=== PATIENT | male | born 1955 | race Caucasian/White ===

== ENCOUNTER 2018-11-04 14:14 | Emergency (ER) | payer OTHER ==
[~2018-11-04] VITALS: Ht 182.9 cm; Wt 102.1 kg
[~2018-11-04 14:14] MED LIST: GUAI200T5 PO; LISI20TA61 PO; METO25TA20 PO; OMEP20CA11 PO
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
[2018-11-04] MEDS ORDERED: HYDROCODONE/APAP 5/325MG 1 EACH TABLET PO ONE (15:00)
[2018-11-04] MEDS ORDERED: ASPIRIN 81 MG TAB.CHEW PO ONE (15:00)
[2018-11-04] MEDS ORDERED: HYDROCODONE/APAP 5/325MG 1 EACH TABLET ONE (15:04)
[2018-11-04] MEDS ORDERED: ASPIRIN 81 MG TAB.CHEW ONE (15:05)
--- NOTE | 2018-11-04 15:12 | NUR ---
BITA WHITFIELD AT BEDSIDE FOR EKG LAB AT BEDSIDE FOR BLOOD DRAW
[2018-11-04 15:19] LABS: BASOPHILS # (AUTO) 0.1 /CMM (0.0-0.2); BASOPHILS % (AUTO) 0.3 % (0.0-2.0); EOSINOPHILS % (AUTO) 1.2 % (0.0-6.0); HEMATOCRIT 43 % (39-51); LYMPHOCYTES # (AUTO) 12.1 /CMM (0.8-4.8); LYMPHOCYTES % (AUTO) 61.4 % (20.0-44.0); MEAN CORPUSCULAR HGB CONC 33 g/dl (31.0-36.0); MEAN CORPUSCULAR VOLUME 90 fL (80-96); MONOCYTES % (AUTO) 4.9 % (2.0-12.0); NEUTROPHILS # (AUTO) 6.3 /CMM (1.8-8.9); NEUTROPHILS % (AUTO) 32.2 % (43.0-81.0); PLATELET COUNT (AUTO) 255 /CMM (150-450); RED BLOOD CELL COUNT(AUTO) 4.75 MIL/uL (4.5-6.0); WHITE BLOOD COUNT (AUTO) 19.7 K/uL (4.3-11.0)
[2018-11-04 15:26] LABS: CALCIUM, SERUM 8.9 mg/dL (8.5-10.1); CARBON DIOXIDE 28 mmol/L (21-32); CHLORIDE 104 mmol/L (98-107); GLUCOSE 84 mg/dL (74-106); POTASSIUM 4.1 mmol/L (3.5-5.1); SODIUM SERUM 140 mmol/L (136-145); UREA NITROGEN, BLOOD 12 mg/dL (7-18)
[2018-11-04] MEDS ORDERED: CARV6.252 PO (15:26)
[2018-11-04] MEDS ORDERED: AMLO5TAB9 PO (15:26)
--- NOTE | 2018-11-04 15:40 | NUR ---
PT TAKEN TO RADIOLOGY VIA JORGE
--- NOTE | 2018-11-04 17:16 | NUR ---
PT STATES FEELING BETTER. PAIN IS MINIMAL. NO OTHER COMPLAINTS AT THIS TIME.
[2018-11-04 18:00] VITALS: BP 162/88
== END 2018-11-04 18:02 | disposition home or self-care (01) ==
LOC: ER 14:14
DX: R07.89 Other chest pain (principal); D72.829 Elevated white blood cell count, unspecified; M54.5 Low back pain; I10 Essential (primary) hypertension; E66.9 Obesity, unspecified; G89.29 Other chronic pain; Z90.89 Acquired absence of other organs; Z68.30 Body mass index [BMI] 30.0-30.9, adult; Z98.890 Other specified postprocedural states; V49.49XA Driver injured in collision with other motor vehicles in traffic accident, initial encounter; Y93.89 Activity, other specified; Y92.488 Other paved roadways as the place of occurrence of the external cause; Y99.8 Other external cause status
CPT/HCPCS: 36415; 71045-TC; 72110-TC; 80048-TC; 84484-TC; 85025-TC; 85378-TC

== ENCOUNTER 2021-12-13 19:35 | Inpatient (IN) | payer MEDICAID, OTHER ==
[~2021-12-13] VITALS: Ht 182.9 cm; Wt 105.9 kg
[~2021-12-13 19:35] MED LIST changes: +AMLO-212 PO; +CARV6.252 PO; -GUAI200T5 PO; -LISI20TA61 PO; -METO25TA20 PO; -OMEP20CA11 PO
--- NOTE | 2021-12-13 19:48 | NUR ---
BIBRA81. WEAKNESS X 2 DAYS. NOTED AFIB RVR. DENIES CP. PATIENT ALERT AND ORIENTED X4. AMBULATORY WITH NON LABORED BREATHING. ON A MONITOR AND POX IN BED 08 AWAITING MD ROBB.
--- NOTE | 2021-12-13 19:51 | NUR ---
BLOOD COLLECTED AND SENT TO LAB
--- NOTE | 2021-12-13 19:56 | NUR ---
EMT AT BEDSIDE FOR EKG
[2021-12-13 20:10] LABS: BASOPHILS # (AUTO) 0.1 K/uL (0.0-0.2); BASOPHILS % (AUTO) 0.2 % (0.0-2.0); EOSINOPHILS % (AUTO) 0.6 % (0.0-6.0); HEMATOCRIT 39 % (39-51); HEMOGLOBIN 12.7 g/dL (13.5-17.5); LYMPHOCYTES # (AUTO) 27.7 K/uL (0.8-4.8); MEAN CORPUSCULAR HGB CONC 33 g/dl (31.0-36.0); MEAN CORPUSCULAR VOLUME 90 fL (80-96); MONOCYTES # (AUTO) 0.8 K/uL (0.1-1.30); MONOCYTES % (AUTO) 2.2 % (2.0-12.0); NEUTROPHILS # (AUTO) 7.2 K/uL (1.8-8.9); PLATELET COUNT (AUTO) 186 K/uL (150-450); RED BLOOD CELL COUNT(AUTO) 4.33 MIL/uL (4.5-6.0)
[2021-12-13 20:24] LABS: CALCIUM, SERUM 9.1 mg/dL (8.5-10.1); CARBON DIOXIDE 25 mmol/L (21-32); CHLORIDE 102 mmol/L (98-107); CREATININE 1.1 mg/dL (0.6-1.3); GLUCOSE 123 mg/dL (74-106); POTASSIUM 4.6 mmol/L (3.5-5.1); SODIUM SERUM 135 mmol/L (136-145); UREA NITROGEN, BLOOD 12 mg/dL (7-18)
[2021-12-13] MEDS ORDERED: METOPROLOL TARTRATE INJ 5 MG/5 ML AMPUL IVP SCH (20:30)
[2021-12-13] MEDS ORDERED: METOPROLOL TARTRATE INJ 5 MG/5 ML AMPUL ONE ×3 (20:32→21:26)
--- NOTE | 2021-12-13 20:43 | NUR ---
COVID SWAB DONE AND SENT TO LAB
[2021-12-13] MEDS ORDERED: METOPROLOL TARTRATE INJ 5 MG/5 ML AMPUL IV ONE ×2 (21:30)
[2021-12-13] MEDS ORDERED: DILTIAZEM HCL 25 MG IV ONE ×2 (21:45→22:33)
[2021-12-13] MEDS ORDERED: IV NS 0.9% 500 ML IV ONE (22:00)
[2021-12-13] MEDS ORDERED: DILTIAZEM HCL IV 125 MG in IV NS 0.9% 100 ML IV PRN (22:00)
[2021-12-13] MEDS ORDERED: IV NS 0.9% 1,000 ML IV ONE (22:00)
[2021-12-13] MEDS ORDERED: DILTIAZEM HCL 25 MG IV IV ONE (22:00)
[2021-12-13] MEDS ORDERED: APIXABAN 5 MG TABLET ONE (22:03)
[2021-12-13] MEDS: APIXABAN 5 MG TABLET PO SCH (22:05)
[2021-12-13 22:06] LABS: WHITE BLOOD COUNT (AUTO) 35.9 K/uL (4.3-11.0)
--- NOTE | 2021-12-13 22:06 | NUR ---
WBC 35.9
[2021-12-13 22:20] LABS: BAND % (MANUAL) 2 % (0.0-5.0); LYMPHOCYTES % (MANUAL) 74 % (16-48); MONOCYTES % (MANUAL) 1 % (0-11.0); NEUTROPHILS % (MANUAL) 23 (42-76)
[2021-12-13] MEDS ORDERED: DILTIAZEM HCL 50 MG IV ONE (22:33)
[2021-12-13] MEDS ORDERED: APIXABAN 5 MG TABLET PO SCH (23:15)
[2021-12-13] MEDS ORDERED: MAGNESIUM HYDROXIDE 30 ML UDC PO PRN (23:30)
[2021-12-13] MEDS ORDERED: ACETAMINOPHEN 325 MG TABLET PO PRN (23:30)
[2021-12-13] MEDS ORDERED: Z GUARD REMEDY 4 OZ OINT TP PRN (23:30)
[2021-12-13] MEDS ORDERED: AZITHROMYCIN 500 MG in IV D5W 250 ML IV SCH (23:30)
[2021-12-13] MEDS ORDERED: ONDANSETRON HCL/PF 4 MG/2 ML VIAL IVP PRN (23:30)
[2021-12-13] MEDS ORDERED: CEFTRIAXONE 1 G in IV D5W 50 ML IV SCH (23:30)
[2021-12-13] MEDS ORDERED: HYDROCODONE/APAP 5/325MG TABLET PO PRN (23:30)
[2021-12-13] MEDS ORDERED: CEFTRIAXONE 1GM BAG (ER ONLY) 50 ML IV ONE (23:50)
[2021-12-13] MEDS ORDERED: AZITHROMYCIN 500 MG VIAL ONE (23:51)
[2021-12-14] VITALS (7 sets, daily range): BP systolic 119–142; BP diastolic 70–97
--- NOTE | 2021-12-14 00:47 | NUR ---
report given to olga giron
[2021-12-14] MEDS ORDERED: methylPREDNISolone SOD SUCC 125 MG/2ML VIAL IV ONE (01:30)
[2021-12-14] MEDS ORDERED: methylPREDNISolone SOD SUCC 125 MG/2ML VIAL ONE (01:32)
[2021-12-14] MEDS ORDERED: LEVALBUTEROL HCL NEB 1.25 MG/0.5 ML VIAL.NEB ONE (01:44)
[2021-12-14] MEDS ORDERED: IPRATROPIUM NEB FS 0.5 MG/2.5 ML AMPUL.NEB ONE (01:45)
[2021-12-14] MEDS: IPRATROPIUM NEB FS 0.5 MG/2.5 ML AMPUL.NEB NEB PRN (01:53)
[2021-12-14] MEDS: LEVALBUTEROL HCL NEB 1.25 MG/0.5 ML VIAL.NEB NEB PRN (01:53)
--- NOTE | 2021-12-14 02:25 | NUR ---
transferred patient to [facility]
--- NOTE | 2021-12-14 03:14 | NUR ---
PLATE PREPARERVOICE PATHOLOGIST NOTE PATIENT BROUGHT IN UNIT AT AROUND 0217 AM ACCOMPANIED BY 2 ER STAFF. PATIENT NOTED TO HAVE SOB IN EXERTION, AND NOTED TO BE IN SIMPLE MASK-- PATIENT A MOUTH BREATHER. PATIENT DENIES CHEST PAIN AT THIS TIME. NOTED TO BE COUGHING UPON ARRIVAL. PER PATIENT SYMPTOMS ARE ALL NEW TO HIM. PATIENT IN TELE MONITOR READING A-FIB CONTROLLED AT THIS TIME. NOTED TO HAVE DISTENDED ABDOMEN, FIRM, NON-TENDED TO PALPATE BUT PER PATIENT HE IS REGULAR WITH HIS BM. PER PATIENT HE LIVES ALONE AND WOULD NEED TRANSPORTATION GOING HOME SINCE HIS SON LIVES IN [place]. PATIENT NOT COVID VACCINATED AND PER HIM IT'S BY CHOICE AND REFUSES VACCINE. PATIENT UP TO DATE WITH HIS FLU VACCINE BUT UNABLE TO RECALL DATE. PATIENT ORIENTED IN THE UNIT AND THE USE OF CALL LIGHT. BELONGINGS SIGNED FOR. NEW ID BAND ON PATIENT. IV ACCESS ON LEFT HAND #18G INTACT. SKIN INTACT. SAFETY IN PLACE. WILL FOLLOW THROUGH DOCTOR'S ORDERS AND CARE PLAN. ADMISSION V/S FOLLOWS: 139/84, HR-120, T-97.8, SAT-98% IN 4LPM. RR- 36 BPM. PATIENT WISHES TO BE FULL CODE AT THIS TIME.
--- NOTE | 2021-12-14 04:44 | NUR ---
patient ambulated to the restroom, denies any lightheadedness nor syncope. still sob but tolerated without oxygen. per patient he feels better than he did earlier when ambulating.
--- NOTE | 2021-12-14 06:49 | NUR ---
closing note rn noc patient in bed, with eyes closed, easy to arouse. all needs attended. no s/s of distress in o2 via simple mask. tele monitor reading afib. denies any pain nor discomfort. safety kept in place the whole shift. will endorse to morning shift rn for continuity of patient care.
[2021-12-14 06:58] LABS: BASOPHILS % (AUTO) 0.1 % (0.0-2.0); HEMATOCRIT 39 % (39-51); HEMOGLOBIN 12.7 g/dL (13.5-17.5); LYMPHOCYTES # (AUTO) 30.3 K/uL (0.8-4.8); LYMPHOCYTES % (AUTO) 79.1 % (20.0-44.0); MEAN CORPUSCULAR HGB CONC 33 g/dl (31.0-36.0); MEAN CORPUSCULAR VOLUME 90 fL (80-96); MONOCYTES # (AUTO) 0.4 K/uL (0.1-1.30); MONOCYTES % (AUTO) 1.1 % (2.0-12.0); NEUTROPHILS # (AUTO) 7.5 K/uL (1.8-8.9); NEUTROPHILS % (AUTO) 19.7 % (43.0-81.0); PLATELET COUNT (AUTO) 189 K/uL (150-450); RED BLOOD CELL COUNT(AUTO) 4.32 MIL/uL (4.5-6.0)
[2021-12-14 07:13] LABS: WHITE BLOOD COUNT (AUTO) 38.3 K/uL (4.3-11.0)
[2021-12-14 07:25] LABS: CALCIUM, SERUM 8.9 mg/dL (8.5-10.1); MAGNESIUM 2.3 mg/dL (1.8-2.4); PHOSPHORUS 3.3 mg/dL (2.5-4.9); POTASSIUM 4.1 mmol/L (3.5-5.1)
[2021-12-14 07:39] LABS: THYROID STIMULATING HORMONE 0.716 uIU/mL (0.358-3.74)
[2021-12-14] MEDS ORDERED: LOSA50TA39 PO (08:04)
[2021-12-14] MEDS: PANTOPRAZOLE 40 MG TABLET.DR PO SCH (09:43)
[2021-12-14] MEDS: DILTIAZEM HCL CD 240 MG PO SCH (09:44)
[2021-12-14] MEDS: DIGOXIN INJ 0.5 MG/2 ML AMPUL IV SCH ×3 (09:45→21:43)
[2021-12-14] MEDS: APIXABAN 5 MG TABLET PO SCH ×2 (09:46→17:15)
[2021-12-14] MEDS ORDERED: HYDROCODONE/APAP 10/325MG TABLET PO PRN (12:00)
[2021-12-14 12:39] LABS: LYMPHOCYTES % (MANUAL) 85 % (16-48); NEUTROPHILS % (MANUAL) 15 (42-76)
[2021-12-14] MEDS: methylPREDNISolone SOD SUCC 125 MG/2ML VIAL IV SCH ×2 (13:00→21:58)
[2021-12-14] MEDS ORDERED: VANCOMYCIN 1 GM in IV D5W 250 ML IV SCH (16:30)
[2021-12-14] MEDS: VANCOMYCIN 1.25 GM in IV D5W 250 ML IV SCH ×2 (18:20→20:15)
[2021-12-14] MEDS: PIPERACILLIN /TAZOBACTAM 3.375 G in IV D5W 50 ML IV SCH (19:01)
--- NOTE | 2021-12-14 19:47 | NUR ---
BINDING CUTTER OPENING NOTES: RECEIVED PATIENT AWAKE IN BED, BED IN LOW POSITION CALL LIGHTS WITHIN REACH, NO COMPLAIN OF PAIN AND DISCOMFORT AT THIS TIME, ON O2 INHALATION AT 5LPM SATURATING WELL, PATIENT IS ON SOB, PATIENT IS A/O X4 NO COMPLAIN OF PAIN AT THIS TIME, IV LINE T LEFT HAND #18 SL, ON TELE MONITOR- A FIB-105, NO SYMPTOMS WAS OBSERVED, PATIENT KEPT CLEAN AND DRY ALL NEEDS MET, WILL CONTINUE TO MONITOR
--- NOTE | 2021-12-14 19:57 | NUR ---
FORESTRY PILOT CLOSING NOTE PATIENT RECEIVED IN BED AND AWAKE. A/O X4 AND ABLE TO VERBALIZE NEEDS. TOLERATED ALL MEDICATIONS WELL. C/O PAIN TO LOWER BACK ON SHIFT. RECEIVED NORCO PRN @ 0942. MEDICATION EFFECTIVE. IV ACCESS SITE TO LEFT HAND PATENT AND INTACT. CONTINUES TO HAVE SOB AND REMAINS ON OXYGEN @ 5LPM VIA OXYGEN MASK. USES NASAL CANULA TO CONTINUE OXYGEN USE WHEN EATING. TOLERATING BOTH ROUTES WELL WITH OXYGEN @ 95-96%. PATIENT HAD TWO EPISODES OF PROFUSE SWEATING, HOWEVER THEY QUICKLY RESOLVED. NO S/SX OF FEVER OR CHILLS. NO OTHER GABRIELA. SAFETY MEASURES INTACT. BED LOW AND LOCKED. CALL LIGHT WITHIN REACH. WILL CONT TO MONITOR.
[2021-12-15] VITALS (7 sets, daily range): BP systolic 116–154; BP diastolic 65–87
[2021-12-15] MEDS: PIPERACILLIN /TAZOBACTAM 3.375 G in IV D5W 50 ML IV SCH ×2 (00:15→05:55)
[2021-12-15] MEDS: methylPREDNISolone SOD SUCC 125 MG/2ML VIAL IV SCH ×2 (05:55→17:11)
[2021-12-15 06:17] LABS: HEMATOCRIT 39 % (39-51); HEMOGLOBIN 12.6 g/dL (13.5-17.5); LYMPHOCYTES # (AUTO) 43.8 K/uL (0.8-4.8); LYMPHOCYTES % (AUTO) 76.8 % (20.0-44.0); MEAN CORPUSCULAR HGB CONC 32 g/dl (31.0-36.0); MEAN CORPUSCULAR VOLUME 91 fL (80-96); MONOCYTES # (AUTO) 0.8 K/uL (0.1-1.30); MONOCYTES % (AUTO) 1.5 % (2.0-12.0); NEUTROPHILS # (AUTO) 12.4 K/uL (1.8-8.9); NEUTROPHILS % (AUTO) 21.7 % (43.0-81.0); PLATELET COUNT (AUTO) 228 K/uL (150-450); RED BLOOD CELL COUNT(AUTO) 4.34 MIL/uL (4.5-6.0)
[2021-12-15 06:40] LABS: ALBUMIN 3.6 g/dL (3.4-5.0); BILIRUBIN,DIRECT 0.1 mg/dL (0.0-0.2); BILIRUBIN,TOTAL 0.4 mg/dL (0.2-1.0); CALCIUM, SERUM 9.2 mg/dL (8.5-10.1); POTASSIUM 4.6 mmol/L (3.5-5.1); TOTAL PROTEIN, SERUM 7.5 g/dL (6.4-8.2)
--- NOTE | 2021-12-15 06:44 | NUR ---
CREATIVE DEVELOPER CLOSING NOTES: PATIENT SLEEP IN BED COMFORTABLY, BED IN LOW POSITION CALL LIGHTS WITHIN REACH, NO COMPLAIN OF PAIN AND DISCOMFORT AT THIS TIME ON SIMPLE MASK AT 8LPM SATURATING WELL PATIENT IS ON TELE MONITOR- A/OX4 ABLE TO MAKE NEEDS KNOWN, AMBULATORY WITH SUPERVISION, IV LINE AT LEFT HAND #18SL,ON TELE MONITOR-92 PATIENT KEPT CLEAN AND DRY ALL NEEDS MET ENDORSE TO INCOMING SHIFT.
[2021-12-15] MEDS: VANCOMYCIN 1.25 GM in IV D5W 250 ML IV SCH (06:54)
--- NOTE | 2021-12-15 07:09 | NUR ---
RN OPENING NOTES RECEIVED PATIENT AWAKE IN BED ON PHONE. ON 8L VIA SIMPLE FACE MASK, SLIGHT USE OF ACCESSORY MUSCLE USAGE NOTED, VELVET STEAMER REPORTED RT WILL COME FOR BREATHING TREATMENT. A/Ox4 ABLE TO MAKE NEEDS KNOWN. IV ACCESS L HAND #18 RUNNING VANCO @125 ML/HR INFUSING WELL. PATIENT IS ON TELEMONITORING SHOWING A-FIB WITH A HR OF 98, NO C/O OF CHEST PAIN OR DISCOMFORT. CONTINENT AND HAS BRP. SKIN IS INTACT. SAFETY MEASURES IN PLACE: BED LOCKED AND IN LOWEST POSITION, SIDE RAILS UP x2, CALL LIGHT WITHIN REACH, HOB ELEVATED. WILL CONTINUE TO MONITOR.
[2021-12-15] MEDS: LEVALBUTEROL HCL NEB 1.25 MG/0.5 ML VIAL.NEB NEB PRN (07:10)
[2021-12-15] MEDS: IPRATROPIUM NEB FS 0.5 MG/2.5 ML AMPUL.NEB NEB PRN (07:10)
[2021-12-15 07:19] LABS: BILIRUBIN,URINE NEGATIVE (NEGATIVE); COLOR,URINE YELLOW (YELLOW); LEUKOCYTE ESTERASE ,URINE NEGATIVE (NEGATIVE); NITRITE, URINE NEGATIVE (NEGATIVE); PROTEIN,URINE 30 mg/dl (NEGATIVE); UGLUCOSE 250 MG/DL mg/dL (NEGATIVE); UROBILINOGEN,URINE 0.2 EU/dL (0.2)
[2021-12-15 07:23] LABS: WHITE BLOOD COUNT (AUTO) 57.1 K/uL (4.3-11.0)
[2021-12-15 08:06] LABS: RBC,URINE 0-2 /HPF (0-2); WBC,URINE 0-2 /HPF (0-3)
[2021-12-15 08:07] LABS: BACTERIA,URINE Few /HPF (None Seen); SQUAMOUS EPITHELIAL CELL,UR Rare /HPF (None Seen); URINE AMORPHOUS URATE Many /HPF (None Seen)
[2021-12-15] MEDS: PANTOPRAZOLE 40 MG TABLET.DR PO SCH (08:52)
[2021-12-15] MEDS: DILTIAZEM HCL CD 240 MG PO SCH (09:09)
[2021-12-15] MEDS: APIXABAN 5 MG TABLET PO SCH ×2 (09:16→17:10)
--- NOTE | 2021-12-15 10:00 | NUR ---
RN NOTE PATIENT WENT TO CT SCAN VIA WHEELCHAIR WITH 1 TECH
[2021-12-15] MEDS: DIGOXIN 0.25 MG TABLET PO SCH (12:42)
[2021-12-15] MEDS: CEFTRIAXONE 1 G in IV D5W 50 ML IV SCH (13:36)
[2021-12-15] MEDS: IPRATROPIUM NEB FS 0.5 MG/2.5 ML AMPUL.NEB NEB SCH (16:18)
[2021-12-15] MEDS: FERROUS SULFATE (325 MG) 325 MG/TAB TABLET PO SCH (17:10)
--- NOTE | 2021-12-15 18:44 | NUR ---
RN CLOSING NOTES PATIENT AWAKE IN BED WATCHING TV. STABLE ON 8L VIA NC, . A/Ox4 ABLE TO MAKE NEEDS KNOWN. IV ACCESS L HAND #18 RUNNING SL. PATIENT IS ON TELEMONITORING SHOWING A-FIB WITH A HR OF 113, NO C/O OF CHEST PAIN OR DISCOMFORT. CONTINENT AND HAS BRP. SKIN IS INTACT. SAFETY MEASURES MAINTAINED: BED LOCKED AND IN LOWEST POSITION, SIDE RAILS UP x2, CALL LIGHT WITHIN REACH, HOB ELEVATED. WILL ENDORSE TO NEXT SHIFT ANY GABRIELA.
--- NOTE | 2021-12-15 19:30 | NUR ---
DOCUMENT MANAGEMENT CONSULTANT OPENING NOTE RECEIVED PATIENT AWAKE IN BED. A/O X4 AND ABLE TO MAKE NEEDS KNOWN. PT STABLE ON 8L VIA NC, TOLERATING WELL. NO ACUTE RESPIRATORY DISTRESS NOTED. ON EXTERNAL CONTACT LENS INSPECTOR READING A FIB 92 BPM. IV ACCESS L HAND #18 SL, INTACT AND PATENT. SAFETY PRECAUTIONS IN PLACE. BED IN LOWEST LOCKED POSITION, HOB ELEVATED, SIDE RAILS UP X2, AND CALL LIGHT AND TABLE WITHIN REACH. ALL NEEDS MET AT THIS TIME.
[2021-12-15] MEDS: DOXYCYCLINE HYCLATE (100 MG) 100 MG TABLET PO SCH (20:45)
[2021-12-15 21:11] LABS: URIC ACID 3.4 mg/dL (2.6-7.2)
[2021-12-16] VITALS (7 sets, daily range): BP systolic 122–141; BP diastolic 75–95
[2021-12-16] MEDS: IPRATROPIUM NEB FS 0.5 MG/2.5 ML AMPUL.NEB NEB SCH ×4 (00:03→23:18)
[2021-12-16 05:55] LABS: HEMATOCRIT 41 % (39-51); HEMOGLOBIN 12.7 g/dL (13.5-17.5); LYMPHOCYTES # (AUTO) 53.7 K/uL (0.8-4.8); LYMPHOCYTES % (AUTO) 77.6 % (20.0-44.0); MEAN CORPUSCULAR HGB CONC 31 g/dl (31.0-36.0); MEAN CORPUSCULAR VOLUME 93 fL (80-96); MONOCYTES # (AUTO) 1.4 K/uL (0.1-1.30); MONOCYTES % (AUTO) 2.1 % (2.0-12.0); NEUTROPHILS % (AUTO) 20.3 % (43.0-81.0); PLATELET COUNT (AUTO) 255 K/uL (150-450); RED BLOOD CELL COUNT(AUTO) 4.42 MIL/uL (4.5-6.0)
[2021-12-16 06:37] LABS: WHITE BLOOD COUNT (AUTO) 69.2 K/uL (4.3-11.0)
--- NOTE | 2021-12-16 06:42 | NUR ---
PLANT BREEDER CLOSING NOTE PATIENT AWAKE IN BED. A/O X4 AND ABLE TO MAKE NEEDS KNOWN. PT STABLE ON 6L VIA NC, TOLERATING WELL. NO ACUTE RESPIRATORY DISTRESS NOTED. ON EXTERNAL ROUGE SIFTER READING A FIB 109 BPM. IV ACCESS L HAND #18 SL, INTACT AND PATENT. ALL DUE MEDS GIVEN ORDERED. SAFETY PRECAUTIONS IN PLACE AT ALL TIMES. BED IN LOWEST LOCKED POSITION, HOB ELEVATED, SIDE RAILS UP X2, AND CALL LIGHT AND TABLE WITHIN REACH. ALL NEEDS MET AT THIS TIME AND WILL ENDORSE TO ONCOMING NURSE FOR GABRIELA.
[2021-12-16 06:50] LABS: URIC ACID 3.6 mg/dL (2.6-7.2)
[2021-12-16 07:07] LABS: CALCIUM, SERUM 9.3 mg/dL (8.5-10.1); POTASSIUM 4.4 mmol/L (3.5-5.1)
--- NOTE | 2021-12-16 07:35 | NUR ---
HOT BOX OPERATOR OPENING NOTE Patient in bed, awake. A/O x 4, able to make needs known. On O2 at 6LPM via Ns, no SOB or s/s of distress noted. IV access on Left hand #20, SL intact and patent. On tele monitoring showing Afib, Hr on the 100's. Safety precautions in place: bed in low, locked position; siderails up x 2; call light within reach. Will continue to monitor.
[2021-12-16 08:24] LABS: LYMPHOCYTES % (MANUAL) 77 % (16-48); MONOCYTES % (MANUAL) 4 % (0-11.0); NEUTROPHILS % (MANUAL) 19 (42-76)
[2021-12-16] MEDS: PANTOPRAZOLE 40 MG TABLET.DR PO SCH (08:41)
[2021-12-16] MEDS: DOXYCYCLINE HYCLATE (100 MG) 100 MG TABLET PO SCH ×2 (08:41→20:23)
[2021-12-16] MEDS: FERROUS SULFATE (325 MG) 325 MG/TAB TABLET PO SCH ×2 (08:42→16:09)
[2021-12-16] MEDS: DILTIAZEM HCL CD 180 MG PO SCH (08:42)
[2021-12-16] MEDS: methylPREDNISolone SOD SUCC 125 MG/2ML VIAL IV SCH (08:42)
[2021-12-16] MEDS: APIXABAN 5 MG TABLET PO SCH ×2 (08:44→16:11)
[2021-12-16 12:07] LABS: IMMUNOGLOBULIN A, SERUM 252 mg/dL (61-437); IMMUNOGLOBULIN G, SERUM 696 mg/dL (603-1613); IMMUNOGLOBULIN M, SERUM 13 mg/dL (20-172)
[2021-12-16] MEDS: CEFTRIAXONE 1 G in IV D5W 50 ML IV SCH (12:45)
[2021-12-16] MEDS: DIGOXIN 0.25 MG TABLET PO SCH (12:45)
[2021-12-16] MEDS: HYDROXYUREA 500 MG CAPSULE PO SCH (14:53)
[2021-12-16] MEDS: CARVEDILOL 6.25 MG TABLET PO SCH (16:10)
[2021-12-16 17:06] LABS: *SPE ALPHA-1-GLOBULIN 0.3 g/dL (0.0-0.4); *SPE ALPHA-2-GLOBULIN 1.1 g/dL (0.4-1.0); *SPE BETA GLOBULIN 1.3 g/dL (0.7-1.3); *SPE M-SPIKE Not Observed g/dL (Not Observed)
--- NOTE | 2021-12-16 19:22 | NUR ---
ICU NURSE CLOSING NOTE Patient in bed, resting. A/O x 4, able to make needs known. On O2 at 6LPM via NC, no SOB or s/s of distress noted. IV access on Left hand #20, SL intact and patent. On tele monitoring showing Afib, HR 105. All needs attended to. Due meds given. Safety precautions in place: bed in low, locked position; siderails up x 2; call light within reach. Will endorse to shift boss nurse for GABRIELA.
--- NOTE | 2021-12-16 19:24 | NUR ---
BOARD WRITER OPENING NOTE RECEIVED PATIENT AWAKE IN BED. RESTING IN BED COMFORTABLY; A/O X4 AND ABLE TO MAKE NEEDS KNOWN. PATIENT STABLE ON 6L VIA NC, TOLERATING WELL. NO ACUTE RESPIRATORY DISTRESS NOTED. NO SOB NOTED; BREATHING EVEN AND UNLABORED; TELE MONITOR READING A FIB 106BPM. IV ACCESS L HAND #18 SL, INTACT AND PATENT. NO S/S OF REDNESS OR INFILTRATION NOTED; TOLERATING IVF WELL; SAFETY PRECAUTIONS IN PLACE. BED IN LOWEST LOCKED POSITION, HOB ELEVATED, SIDE RAILS UP X2, AND CALL LIGHT AND TABLE WITHIN REACH. BED ALARM ON; WILL CONT PLAN OF CARE
[2021-12-17] VITALS: BP 142/87
[2021-12-17 04:00] VITALS: BP 118/77
[2021-12-17 06:32] LABS: BASOPHILS % (AUTO) 0.1 % (0.0-2.0); HEMATOCRIT 39 % (39-51); HEMOGLOBIN 12.3 g/dL (13.5-17.5); LYMPHOCYTES # (AUTO) 61.8 K/uL (0.8-4.8); LYMPHOCYTES % (AUTO) 82.7 % (20.0-44.0); MEAN CORPUSCULAR HGB CONC 32 g/dl (31.0-36.0); MEAN CORPUSCULAR VOLUME 92 fL (80-96); MONOCYTES # (AUTO) 1.7 K/uL (0.1-1.30); MONOCYTES % (AUTO) 2.2 % (2.0-12.0); NEUTROPHILS # (AUTO) 11.2 K/uL (1.8-8.9); PLATELET COUNT (AUTO) 251 K/uL (150-450); RED BLOOD CELL COUNT(AUTO) 4.24 MIL/uL (4.5-6.0)
[2021-12-17 06:58] LABS: CALCIUM, SERUM 8.7 mg/dL (8.5-10.1); CREATININE 0.9 mg/dL (0.6-1.3); POTASSIUM 4.3 mmol/L (3.5-5.1)
--- NOTE | 2021-12-17 07:13 | NUR ---
CHILD CARE WORKER CLOSING NOTE LEFT PATIENT RESTING IN BED COMFORTABLY, PT A/O X 4, ABLE TO VERBALIZE NEEDS, NO COMPLAIN OF PAIN AND DISCOMFORT AT THIS TIME. PATIENT IS ON TELE MONITOR S[place], HR: 106. PT AMBULATORY WITH SUPERVISION. NEW IV ACCESS INSERTED TO LEFT WRIST 22G. PATIENT KEPT CLEAN AND DRY. ALL MEDS ADMINISTERED ORDERED. ALL CARE DONE. SAFETY MEASURES IN PLACE, BED LOCKED IN LOW POSITION, CALL LIGHT WITHIN REACH. WILL ENDORSE PT'S CARE TO INCOMING SHIFT NURSE.
--- NOTE | 2021-12-17 07:35 | NUR ---
FREELANCE INTERPRETER/TRANSLATOR OPENING NOTE RECEIVED PATIENT AWAKE IN BED. RESTING IN BED COMFORTABLY; AMBULATORY, A/O X4 AND ABLE TO MAKE NEEDS KNOWN. DENIED PAIN, PATIENT IS ON RA TOLERATING WELL AT 97%. NO ACUTE RESPIRATORY DISTRESS NOTED. NO SOB NOTED; BREATHING EVEN AND UNLABORED; TELE MONITOR READING A FIB 120 BPM UNCONTROLLED AT THIS TIME, MD AWARE. IV ACCESS L WRIST G#22 SL, INTACT AND PATEN, FLUSHING WELL C/D/I. SAFETY PRECAUTIONS IN PLACE. BED IN LOWEST LOCKED POSITION, HOB ELEVATED, SIDE RAILS UP X2, AND CALL LIGHT AND TABLE WITHIN REACH. BED ALARM ON; WILL CONTINUE TO MONITOR DURING MY SHIFT.
[2021-12-17 07:59] LABS: WHITE BLOOD COUNT (AUTO) 74.8 K/uL (4.3-11.0)
--- NOTE | 2021-12-17 07:59 | NUR ---
RN NOTES - CRITICAL LAB VALUES/TELE READING NIKOLAI WITH LAB REPORTS WBC OF 74.8, TELE REPORTS AFIB UNCONTROLLED WITH [address] BEE ACCORDINGLY.
[2021-12-17 08:00] VITALS: BP 143/94
[2021-12-17] MEDS: PANTOPRAZOLE 40 MG TABLET.DR PO SCH (08:00)
[2021-12-17] MEDS: IPRATROPIUM NEB FS 0.5 MG/2.5 ML AMPUL.NEB NEB SCH ×3 (08:04→23:23)
[2021-12-17] MEDS: DOXYCYCLINE HYCLATE (100 MG) 100 MG TABLET PO SCH ×2 (09:43→20:55)
[2021-12-17] MEDS: HYDROXYUREA 500 MG CAPSULE PO SCH ×2 (09:43→17:46)
[2021-12-17] MEDS: CARVEDILOL 6.25 MG TABLET PO SCH ×2 (09:44→17:48)
[2021-12-17] MEDS: FERROUS SULFATE (325 MG) 325 MG/TAB TABLET PO SCH ×2 (09:44→17:48)
[2021-12-17] MEDS: LOSARTAN POTASSIUM 50 MG TABLET PO SCH (09:45)
[2021-12-17] MEDS: APIXABAN 5 MG TABLET PO SCH ×2 (09:45→17:49)
[2021-12-17] MEDS: AMLODIPINE BESYLATE 5 MG TABLET PO SCH (09:45)
[2021-12-17] MEDS: methylPREDNISolone SOD SUCC 40 MG/ML VIAL IV SCH (09:46)
[2021-12-17] MEDS: DILTIAZEM HCL CD 180 MG PO SCH (09:48)
[2021-12-17 12:05] LABS: LYMPHOCYTES % (MANUAL) 83 % (16-48); MONOCYTES % (MANUAL) 2 % (0-11.0); NEUTROPHILS % (MANUAL) 15 (42-76)
[2021-12-17] MEDS: DIGOXIN 0.25 MG TABLET PO SCH (13:24)
[2021-12-17] MEDS: CEFTRIAXONE 1 G in IV D5W 50 ML IV SCH (13:24)
[2021-12-17 16:00] VITALS: BP 132/83
--- NOTE | 2021-12-17 18:42 | NUR ---
CHRISTIAN SCIENCE READER CLOSING NOTE PATIENT AWAKE IN BED WATCHING TV COMFORTABLY; AMBULATORY, A/O X4 AND ABLE TO MAKE NEEDS KNOWN. DENIED PAIN, PATIENT IS STILL ON RA TOLERATING WELL AT 97%, DIDN'T REQUIRE PRN OXYGEN DURING MY SHIFT. NO ACUTE RESPIRATORY DISTRESS NOTED. NO SOB NOTED; BREATHING EVEN AND UNLABORED; TELE MONITOR READING A FIB WITH OCCASIONAL PVCS AT 90S, MD AWARE. IV ACCESS L WRIST G#22 SL, INTACT AND PATEN, FLUSHING WELL C/D/I. SAFETY PRECAUTIONS MAINTAINED: BED IN LOWEST LOCKED POSITION, HOB ELEVATED, SIDE RAILS UP X2, AND CALL LIGHT AND TABLE WITHIN REACH. WILL ENDORSE TO THE NIGHT NURSE.
--- NOTE | 2021-12-17 19:30 | NUR ---
MONEY EXAMINER NOTES RECEIVED ON BED WATCHING TV PROGRAM,A/O X 4,BREATHING REGULAR,NOT IN ANY FORM OF DISTRESS,SALINE LOCK LEFT WRIST INTACT AND PATENT.DENIES ANY CHEST DISCOMFORTS.AMBULATES WITH STEADY GAIT,CALL LIGHT IN REACH,WILL CONTINUE TO MONITOR STATUS.
[2021-12-17 20:00] VITALS: BP 129/80
[2021-12-18] VITALS: BP 112/77
--- NOTE | 2021-12-18 01:00 | NUR ---
SENIOR PROCESS CONTROL TECH NOTES SOUND ASLEEP WITH NORMAL BREATHING PATTERN.KEPT WARM AND COMFORTABLE.
--- NOTE | 2021-12-18 06:35 | NUR ---
AFRICA[place] STUDIES PROFESSOR NOTES AFIB WITH EPISODE OF OCCASIONAL PVC'S,AWAKE THIS TIME,NO EPISODE OF SOB NOTED,CALL LIGHT IN REACH,NEEDS ATTENDED.
[2021-12-18 06:48] LABS: BASOPHILS # (AUTO) 0.2 K/uL (0.0-0.2); BASOPHILS % (AUTO) 0.3 % (0.0-2.0); HEMATOCRIT 43 % (39-51); HEMOGLOBIN 13.2 g/dL (13.5-17.5); LYMPHOCYTES # (AUTO) 68.4 K/uL (0.8-4.8); LYMPHOCYTES % (AUTO) 85.8 % (20.0-44.0); MEAN CORPUSCULAR HGB CONC 31 g/dl (31.0-36.0); MEAN CORPUSCULAR VOLUME 95 fL (80-96); MONOCYTES % (AUTO) 1.2 % (2.0-12.0); NEUTROPHILS # (AUTO) 10.1 K/uL (1.8-8.9); NEUTROPHILS % (AUTO) 12.7 % (43.0-81.0); PLATELET COUNT (AUTO) 223 K/uL (150-450); RED BLOOD CELL COUNT(AUTO) 4.48 MIL/uL (4.5-6.0)
[2021-12-18] MEDS: IPRATROPIUM NEB FS 0.5 MG/2.5 ML AMPUL.NEB NEB SCH ×3 (07:34→23:30)
[2021-12-18 07:37] LABS: WHITE BLOOD COUNT (AUTO) 79.8 K/uL (4.3-11.0)
--- NOTE | 2021-12-18 07:38 | NUR ---
RN NOTES - CRITICAL VALUE NIKOLAI FROM LAB REPORTS 79.8 WBC, INFORMED TONY BEE ACCORDINGLY, ACKNOWLEDGED NO NEW ORDER GIVEN
[2021-12-18 07:39] LABS: CALCIUM, SERUM 8.7 mg/dL (8.5-10.1); CREATININE 0.9 mg/dL (0.6-1.3); MAGNESIUM 2.5 mg/dL (1.8-2.4); PHOSPHORUS 3.9 mg/dL (2.5-4.9); POTASSIUM 4.2 mmol/L (3.5-5.1)
--- NOTE | 2021-12-18 07:40 | NUR ---
DIRECTOR LAW ENFORCEMENT OPENING NOTE RECEIVED PATIENT AWAKE IN BED. RESTING IN BED COMFORTABLY; AMBULATORY, A/O X4 AND ABLE TO MAKE NEEDS KNOWN. DENIED PAIN, PATIENT IS ON RA TOLERATING WELL AT 98%. NO ACUTE RESPIRATORY DISTRESS NOTED. NO SOB NOTED; BREATHING EVEN AND UNLABORED; TELE MONITOR READING A FIB 86 BPM WITH PVCS AT THIS TIME. IV ACCESS L WRIST G#22 SL, INTACT AND PATENT FLUSHING WELL C/D/I. SAFETY PRECAUTIONS IN PLACE. BED IN LOWEST LOCKED POSITION, HOB ELEVATED, SIDE RAILS UP X2, AND CALL LIGHT AND TABLE WITHIN REACH. BED ALARM ON; WILL CONTINUE TO MONITOR AND FOLLOW PLAN OF CARE DURING MY SHIFT.
[2021-12-18 08:00] VITALS: BP 146/93
[2021-12-18] MEDS: PANTOPRAZOLE 40 MG TABLET.DR PO SCH (08:12)
[2021-12-18] MEDS: LOSARTAN POTASSIUM 50 MG TABLET PO SCH (08:13)
[2021-12-18] MEDS: FERROUS SULFATE (325 MG) 325 MG/TAB TABLET PO SCH ×2 (08:13→17:04)
[2021-12-18] MEDS: HYDROXYUREA 500 MG CAPSULE PO SCH ×3 (08:14→17:04)
[2021-12-18] MEDS: AMLODIPINE BESYLATE 5 MG TABLET PO SCH (08:14)
[2021-12-18] MEDS: DOXYCYCLINE HYCLATE (100 MG) 100 MG TABLET PO SCH ×2 (08:14→20:45)
[2021-12-18] MEDS: APIXABAN 5 MG TABLET PO SCH ×2 (08:15→17:09)
[2021-12-18] MEDS: DILTIAZEM HCL CD 180 MG PO SCH (08:16)
[2021-12-18] MEDS: CARVEDILOL 6.25 MG TABLET PO SCH ×2 (08:16→17:04)
[2021-12-18] MEDS: methylPREDNISolone SOD SUCC 40 MG/ML VIAL IV SCH (08:17)
--- NOTE | 2021-12-18 10:00 | NUR ---
RN NOTES PATIENT IS TAKEN DOWN TO THE CAT LAB
[2021-12-18 12:00] VITALS: BP 127/85
[2021-12-18] MEDS: DIGOXIN 0.25 MG TABLET PO SCH (13:31)
[2021-12-18] MEDS: CEFTRIAXONE 1 G in IV D5W 50 ML IV SCH (13:33)
[2021-12-18 16:00] VITALS: BP 132/88
--- NOTE | 2021-12-18 18:39 | NUR ---
VMWARE SYSTEMS ADMINISTRATOR OPENING NOTE PATIENT AWAKE IN BED. RESTING IN BED COMFORTABLY; AMBULATORY, A/O X4 AND ABLE TO MAKE NEEDS KNOWN. DENIED PAIN DURING MY SHIFT, PATIENT IS ON RA TOLERATING WELL AT 98%. NO ACUTE RESPIRATORY DISTRESS NOTED. NO SOB NOTED; BREATHING EVEN AND UNLABORED; TELE MONITOR READING A FIB WITH OCCASIONAL PVCS WITH HR OF 116. AT THIS TIME. IV ACCESS L WRIST G#22 SL, INTACT AND PATENT FLUSHING WELL C/D/I. REMINDED PATIENT REGARDING NPO POST MIDNIGHT FOR US PROCEDURE TOMORROW. PATIENT IS COOPERATIVE. SAFETY PRECAUTIONS MAINTAINED: BED IN LOWEST LOCKED POSITION, HOB ELEVATED, SIDE RAILS UP X2, AND CALL LIGHT AND TABLE WITHIN REACH. BED ALARM ON; WILL ENDORSE TO THE DATA ASSISTANT NURSE. Addendum: 12/18/21 at 1841 by [place] RN CORRECTION: VMWARE SYSTEMS ADMINISTRATOR "CLOSING" NOTE
[2021-12-18 20:00] VITALS: BP 133/93
--- NOTE | 2021-12-18 20:36 | NUR ---
BACTERIOLOGIST SOIL OPENING NOTE PATIENT AWAKE IN BED. RESTING IN BED COMFORTABLY; AMBULATORY, A/O X4 AND ABLE TO MAKE NEEDS KNOWN. DENIED PAIN DURING MY SHIFT, PATIENT IS ON RA TOLERATING WELL AT 98%. NO ACUTE RESPIRATORY DISTRESS NOTED. NO SOB NOTED;BREATHING EVEN AND UNLABORED; TELE MONITOR READING A FIB WITH OCCASIONAL PVCS WITH HR OF 116. AT THIS TIME. IV ACCESS L WRIST G#22 SL, INTACT AND PATENT FLUSHING WELL C/D/I. REMINDED PATIENT REGARDING NPO POST MIDNIGHT FOR US PROCEDURE TOMORROW. PATIENT IS COOPERATIVE. SAFETY PRECAUTIONS MAINTAINED: BED IN LOWEST LOCKED POSITION, HOB ELEVATED, SIDE RAILS UP X2, AND CALL LIGHT AND TABLE WITHIN REACH. BED ALARM ON.
[2021-12-19] VITALS (9 sets, daily range): BP systolic 128–150; BP diastolic 77–93
[2021-12-19 00:15] LABS: BAND % (MANUAL) 2 % (0.0-5.0); LYMPHOCYTES % (MANUAL) 80 % (16-48); MONOCYTES % (MANUAL) 3 % (0-11.0)
[2021-12-19 00:16] LABS: NEUTROPHILS % (MANUAL) 15 (42-76)
--- NOTE | 2021-12-19 06:38 | NUR ---
SYSTEMS ACCOUNTANT CLOSING NOTE PATIENT AWAKE IN BED. RESTING IN BED COMFORTABLY; AMBULATORY, A/O X4 AND ABLE TO MAKE NEEDS KNOWN. DENIED PAIN, PATIENT IS ON RA TOLERATING WELL. NO ACUTE RESPIRATORY DISTRESS NOTED. NO SOB NOTED;BREATHING EVEN AND UNLABORED; TELE MONITOR READING A FIB WITH OCCASIONAL PVCS WITH HR OF 78. AT THIS TIME. IV ACCESS L WRIST G#22 SL, INTACT AND PATENT FLUSHING WELL C/D/I. PATIENT NPO POST MIDNIGHT FOR US PROCEDURE TODAY.SAFETY PRECAUTIONS MAINTAINED: BED IN LOWEST LOCKED POSITION, HOB ELEVATED, SIDE RAILS UP X2, AND CALL LIGHT AND TABLE WITHIN REACH. BED ALARM ON.
[2021-12-19 07:13] LABS: BASOPHILS # (AUTO) 0.1 K/uL (0.0-0.2); BASOPHILS % (AUTO) 0.1 % (0.0-2.0); HEMATOCRIT 43 % (39-51); HEMOGLOBIN 13.5 g/dL (13.5-17.5); LYMPHOCYTES % (AUTO) 86.3 % (20.0-44.0); MEAN CORPUSCULAR HGB CONC 32 g/dl (31.0-36.0); MEAN CORPUSCULAR VOLUME 92 fL (80-96); MONOCYTES # (AUTO) 1.2 K/uL (0.1-1.30); MONOCYTES % (AUTO) 1.3 % (2.0-12.0); NEUTROPHILS # (AUTO) 11.4 K/uL (1.8-8.9); NEUTROPHILS % (AUTO) 12.3 % (43.0-81.0); PLATELET COUNT (AUTO) 280 K/uL (150-450); RED BLOOD CELL COUNT(AUTO) 4.66 MIL/uL (4.5-6.0)
--- NOTE | 2021-12-19 07:15 | NUR ---
HOSPITAL PERSONNEL DIRECTOR OPENING NOTES: RECEIVED PATIENT IN BED, AWAKE ALERT AND ORIENTED X 4 AND ABLE TO MAKE NEEDS KNOWN,.NO SOB OR CARDIAC DISTRESS NOOTED, AFEBRILE. ON BALL RACKER: WITH CURRENT READING OF CONTROLLED AFIB. ON NPO FOR ABDOMINAL ULTRASOUND. IV ACCESS ON LEFT WRIST G22 PATENT AND INTACT AND SALINE LOCKED. SAFETY PRECAUTIONS MAINTAINED:BED LOCKED AND IN LOWEST POSITION, SIDE RAILS X 2. CALL LIGHT IN EASY REACH. WILL MONITOR ACCORDINGLY.
[2021-12-19] MEDS: PANTOPRAZOLE 40 MG TABLET.DR PO SCH (07:30)
[2021-12-19 07:46] LABS: WHITE BLOOD COUNT (AUTO) 92.7 K/uL (4.3-11.0)
[2021-12-19] MEDS: IPRATROPIUM NEB FS 0.5 MG/2.5 ML AMPUL.NEB NEB SCH ×3 (07:51→23:40)
[2021-12-19 09:20] LABS: CALCIUM, SERUM 8.9 mg/dL (8.5-10.1); MAGNESIUM 2.5 mg/dL (1.8-2.4); PHOSPHORUS 4.1 mg/dL (2.5-4.9); POTASSIUM 4.3 mmol/L (3.5-5.1)
--- NOTE | 2021-12-19 09:45 | NUR ---
RN NOTES: RELAYED TO DR BEE CRITICAL LAB VALUE WBC 92.7. WAITING FOR RESPONSE.
[2021-12-19] MEDS: HYDROXYUREA 500 MG CAPSULE PO SCH ×3 (10:01→16:18)
[2021-12-19] MEDS: DILTIAZEM HCL CD 180 MG PO SCH (10:01)
[2021-12-19] MEDS: methylPREDNISolone SOD SUCC 40 MG/ML VIAL IV SCH (10:01)
[2021-12-19] MEDS: DOXYCYCLINE HYCLATE (100 MG) 100 MG TABLET PO SCH (10:03)
[2021-12-19] MEDS: FERROUS SULFATE (325 MG) 325 MG/TAB TABLET PO SCH ×2 (10:03→16:18)
[2021-12-19] MEDS: CARVEDILOL 6.25 MG TABLET PO SCH ×2 (10:04→16:19)
[2021-12-19] MEDS: AMLODIPINE BESYLATE 5 MG TABLET PO SCH (10:04)
[2021-12-19] MEDS: LOSARTAN POTASSIUM 50 MG TABLET PO SCH (10:04)
[2021-12-19] MEDS: APIXABAN 5 MG TABLET PO SCH ×2 (10:06→16:01)
--- NOTE | 2021-12-19 10:22 | NUR ---
RN NOTES: RELAYED US ABDOMEN RESULT, DR ANDERSON ORDERED PT OFF NPO.
[2021-12-19] MEDS: CEFTRIAXONE 1 G in IV D5W 50 ML IV SCH (12:30)
[2021-12-19] MEDS: DIGOXIN 0.25 MG TABLET PO SCH (12:30)
--- NOTE | 2021-12-19 12:52 | NUR ---
RN NOTES: PT HAD EPISODES OF 140-160S HEART RATE, INFORMED DR BEE AND ORDERED STAT EKG. ORDERS NOTED AND CARRIED OUT.
--- NOTE | 2021-12-19 16:03 | NUR ---
RN NOTES: RECEIVED ORDERS FROM ALEX CORONADO PT FOR BONE MARROW BIOPSY AND CT ABDOMEN W/ CONTRAST FOR TOMORROW 12/20. CONSENT SIGNED. HOLD CELIA MAK MD. NPO POST MIDNIGHT. ALL ORDERS NOTED AND CARRIED OUT.
--- NOTE | 2021-12-19 17:06 | NUR ---
RN NOTES: RECEIVED A CALL FROM ALEX LEIGH TO DC OR STOP CELIA. ORDERS NOTED AND CARRIED OUT.
--- NOTE | 2021-12-19 18:43 | NUR ---
MIX MAKER CLOSING NOTES: PATIENT IN BED AWAKE, ALERT AND ORIENTED X 4 AND ABLE TO VERBALIZED NEEDS. NO SOB NOTED, ON RAIL CAR OPERATOR: WITH CURRENT READING CONTROLLED AFIB 80BPM. PATIENT AMBULATORY, WITH IV PERIPHERAL ACCESS ON LEFT WRIST G#22, PATENT, INTACT AND SALINE LOCKED. SAFETY PRECAUTIONS MAINTAINED: BED LOCKED AND IN LOWEST POSITION, SIDERAILS UP X 2. CALL LIGHT IN EASY REACH FOR HELP. WILL MONITOR PT ACCORDINGLY. ENDORSED TO NOC SHIFT FOR CONTINUITY OF CARE.
--- NOTE | 2021-12-19 19:25 | NUR ---
MORNING SHOW PRODUCER OPENING NOTES RECEIVED PATIENT IN BED; AWAKE, ALERT AND ORIENTED X 4. BREATHING EVEN AND NONLABORED. ON ROOM AIR; TOLERATING WELL. NOT IN ANY FORM OF RESPIRATORY DISTRESS. DENIES ANY PAIN OR DISCOMFORT AT THIS TIME. WITH IV ACCESS ON LEFT WRIST 22g: PATENT, INTACT AND SALINE LOCKED. ON TELEMETRY MONITORING WITH CURRENT READING OF CONTROLLED A FIB HR-82. ABLE TO MAKE NEEDS KNOWN. SAFETY MEASURES IMPLEMENTED: CALL LIGHT AND TABLE WITHIN REACH, SIDE RAILS UP X2, BED IN LOWEST LOCKED POSITION. WILL CONTINUE TO MONITOR
[2021-12-19 22:20] LABS: LYMPHOCYTES % (MANUAL) 65 % (16-48); NEUTROPHILS % (MANUAL) 35 (42-76)
[2021-12-20] VITALS: BP 131/88
[2021-12-20 00:09] VITALS: BP 131/88
[2021-12-20 03:50] VITALS: BP 142/93
[2021-12-20 03:55] VITALS: BP 142/93
--- NOTE | 2021-12-20 06:58 | NUR ---
PARQUETRY FLOOR LAYER CLOSING NOTES PATIENT RESTING IN BED; AWAKE, A/O X 4. STABLE ON ROOM AIR. RESPIRATION EVEN AND NONLABORED. IN NO ACUTE DISTRESS NOTED. NO C/O ANY PAIN OR DISCOMFORT AT THIS TIME. IV ACCESS ON LEFT WRIST 22g: PATENT, INTACT AND SALINE LOCKED. ON TELE MONITOR WITH CURRENT READING OF CONTROLLED A FIB SR HR-90 BPM. ALL NEEDS ATTENDED TO. SAFETY MEASURES MAINTAINED: CALL LIGHT AND TABLE WITHIN REACH, SIDE RAILS UP X2, BED IN LOWEST LOCKED POSITION. ENDORSED TO MORNING SHIFT FOR GABRIELA.
[2021-12-20 07:00] LABS: HEMATOCRIT 43 % (39-51); HEMOGLOBIN 13.3 g/dL (13.5-17.5); LYMPHOCYTES # (AUTO) 80.9 K/uL (0.8-4.8); LYMPHOCYTES % (AUTO) 85.7 % (20.0-44.0); MEAN CORPUSCULAR HGB CONC 31 g/dl (31.0-36.0); MEAN CORPUSCULAR VOLUME 93 fL (80-96); MONOCYTES # (AUTO) 1.2 K/uL (0.1-1.30); MONOCYTES % (AUTO) 1.2 % (2.0-12.0); NEUTROPHILS # (AUTO) 12.4 K/uL (1.8-8.9); NEUTROPHILS % (AUTO) 13.1 % (43.0-81.0); PLATELET COUNT (AUTO) 269 K/uL (150-450); RED BLOOD CELL COUNT(AUTO) 4.61 MIL/uL (4.5-6.0)
[2021-12-20 07:12] LABS: CALCIUM, SERUM 8.7 mg/dL (8.5-10.1); MAGNESIUM 2.6 mg/dL (1.8-2.4); PHOSPHORUS 4.2 mg/dL (2.5-4.9); POTASSIUM 5.3 mmol/L (3.5-5.1)
--- NOTE | 2021-12-20 07:22 | NUR ---
TECHNICAL DOCUMENT WRITER OPENING NOTE RECEIVED PT ASLEEP BUT EASILY WOKEN UP IN BED. PATIENT IS A/O X4 AND ABLE TO MAKE NEEDS KNOWN. PT STABLE ON ROOM AIR, WITH EQUAL AND UNLABORED BREATHING WITH NO SOB OR S/S OF RESPIRATORY DISTRESS. ON EXTERNAL ROOFER ASSISTANT READING CONTROLLED AFIB 90 BPM. PATIENT WITH V ACCESS ON LEFT WRIST G22, ON SALINE LOCK, PATENT AND INTACT. SAFETY PRECAUTIONS IN PLACE AT ALL TIMES. BED IN LOWEST LOCKED POSITION, HOB ELEVATED, SIDE RAILS UP X2, AND CALL LIGHT AND TABLE WITHIN REACH. WILL CONTINUE TO MONITOR PATIENT.
[2021-12-20 07:48] LABS: WHITE BLOOD COUNT (AUTO) 94.5 K/uL (4.3-11.0)
[2021-12-20] MEDS: IPRATROPIUM NEB FS 0.5 MG/2.5 ML AMPUL.NEB NEB SCH ×3 (08:17→23:36)
[2021-12-20 08:23] VITALS: BP 138/78
[2021-12-20] MEDS: APIXABAN 5 MG TABLET PO SCH ×2 (09:00→17:00)
[2021-12-20] MEDS: PANTOPRAZOLE 40 MG TABLET.DR PO SCH (09:08)
[2021-12-20] MEDS: AMLODIPINE BESYLATE 5 MG TABLET PO SCH (09:08)
[2021-12-20] MEDS: HYDROXYUREA 500 MG CAPSULE PO SCH ×2 (09:08→17:58)
[2021-12-20] MEDS: FERROUS SULFATE (325 MG) 325 MG/TAB TABLET PO SCH ×2 (09:08→17:58)
[2021-12-20] MEDS: CARVEDILOL 6.25 MG TABLET PO SCH ×2 (09:09→17:58)
[2021-12-20] MEDS: DILTIAZEM HCL CD 180 MG PO SCH (09:09)
[2021-12-20] MEDS: methylPREDNISolone SOD SUCC 40 MG/ML VIAL IV SCH (09:58)
[2021-12-20] MEDS ORDERED: IOHEXOL-350 100 ML VIAL IV ONE (10:10)
[2021-12-20] MEDS ORDERED: IV NS 0.9% 250 ML IV ONE (10:10)
[2021-12-20] MEDS: DIGOXIN 0.25 MG TABLET PO SCH (13:18)
--- NOTE | 2021-12-20 13:18 | NUR ---
DIRECTOR TRADING NOTE PATIENT WITH SOME HAND SHAKINESS, WASTED MEDS Addendum: 12/20/21 at 1603 by ARIELLA MORATAYA RN ADENDUM: DIGOXIN FELL. PULLED OUT ANOTHER DIGOXIN AND GIVEN TO PATIENT.
--- NOTE | 2021-12-20 15:36 | NUR ---
RT Patient wanted to sleep. Refused breathing tx at this time.
--- NOTE | 2021-12-20 17:59 | NUR ---
BIBLIOGRAPHIC SERVICES SPECIALIST NOTE PATIENT FOR BONE MARROW BIOPSY, VERIFIED WITH ALEX RAZA REGARDING ELIQUIS. WITH NOTE TO HOLD ELIQUIS UNTIL AFTER BONE MARROW BIOPSY DONE OR UNTIL MD ORDERS. NOT IN DISTRESS. STILL WAITING FOR DR. BARRETT FOR PROCEDURE.
--- NOTE | 2021-12-20 19:05 | NUR ---
DRESS FITTER CLOSING NOTE PT ASLEEP BUT EASILY WOKEN UP IN BED. PATIENT IS A/O X4 AND ABLE TO MAKE NEEDS KNOWN. PT STABLE ON ROOM AIR, WITH EQUAL AND UNLABORED BREATHING WITH NO SOB OR S/S OF RESPIRATORY DISTRESS. ON EXTERNAL BEAD WIRE INSULATOR READING CONTROLLED AFIB 90 BPM. PATIENT WITH V ACCESS ON LEFT AC G20, ON SALINE LOCK, PATENT AND INTACT. SAFETY PRECAUTIONS IN PLACE AT ALL TIMES. BED IN LOWEST LOCKED POSITION, HOB ELEVATED, SIDE RAILS UP X2, AND CALL LIGHT AND TABLE WITHIN REACH. WILL ENDORSE PATIENT FOR CONTINUITY OF CARE.
--- NOTE | 2021-12-20 19:35 | NUR ---
BUILDING CLEANING SUPERVISOR OPENING NOTE RECEIVED PATIENT IN BED; AWAKE, ALERT AND ORIENTED X 4. BREATHING EQUAL AND NONLABORED. ON ROOM AIR; TOLERATING WELL. NOT IN ANY FORM OF RESPIRATORY DISTRESS. DENIES ANY PAIN OR DISCOMFORT AT THIS TIME. WITH IV ACCESS ON LEFT WRIST 22g: PATENT, INTACT AND SALINE LOCKED. ON TELEMETRY MONITORING WITH CURRENT READING OF CONTROLLED A FIB HR-82 BPM. ABLE TO MAKE NEEDS KNOWN. SAFETY MEASURES IMPLEMENTED: CALL LIGHT AND TABLE WITHIN REACH, SIDE RAILS UP X2, BED IN LOWEST LOCKED POSITION. WILL CONTINUE TO MONITOR
[2021-12-20 20:00] VITALS: BP 132/85
[2021-12-20 20:21] LABS: LYMPHOCYTES % (MANUAL) 83 % (16-48); MONOCYTES % (MANUAL) 3 % (0-11.0); NEUTROPHILS % (MANUAL) 14 (42-76)
--- NOTE | 2021-12-20 20:26 | NUR ---
RN NOTE PT C/O BACK PAIN 4/10 PAIN SCALE. PRN NORCO 325 MG 1 TAB GIVEN PO ORDERED; WILL CONTINUE TO MONITOR.
--- NOTE | 2021-12-20 23:59 | NUR ---
RT NOTE Pt awake and alert when given Q8 neb tx. SPO2 93% on room air. No respiratory distress or SOB upon assessment. Nebulizer tx given with no adverse reaction.
[2021-12-21] VITALS: BP_SYST 139; BP_SYST 156; BP_DIAS 78; BP_DIAS 84
[2021-12-21 04:00] VITALS: BP 136/84
[2021-12-21 06:33] LABS: HEMATOCRIT 43 % (39-51); HEMOGLOBIN 13.3 g/dL (13.5-17.5); LYMPHOCYTES # (AUTO) 93.4 K/uL (0.8-4.8); LYMPHOCYTES % (AUTO) 86.7 % (20.0-44.0); MEAN CORPUSCULAR HGB CONC 31 g/dl (31.0-36.0); MEAN CORPUSCULAR VOLUME 91 fL (80-96); MONOCYTES # (AUTO) 1.1 K/uL (0.1-1.30); NEUTROPHILS # (AUTO) 13.3 K/uL (1.8-8.9); NEUTROPHILS % (AUTO) 12.3 % (43.0-81.0); PLATELET COUNT (AUTO) 275 K/uL (150-450)
--- NOTE | 2021-12-21 06:54 | NUR ---
RN NOTE RECEIVED CRITICAL LAB: WBC-107.9; ENDORSED LAB RESULT TO INCOMING RN NICOLETTE.
[2021-12-21 06:55] LABS: WHITE BLOOD COUNT (AUTO) 107.9 K/uL (4.3-11.0)
--- NOTE | 2021-12-21 06:55 | NUR ---
MR TEACHER CLOSING NOTE PATIENT IN BED; AWAKE, A/O X 4. RESPIRATION EQUAL AND UNLABORED. STABLE ON ROOM AIR. IN NO ACUTE DISTRESS. NO C/O PAIN OR DISCOMFORT AT THIS TIME. WITH IV ACCESS ON LEFT WRIST 22g: PATENT, INTACT AND SALINE LOCKED. ON TELE MONITOR WITH CURRENT READING OF CONTROLLED A FIB HR-89 BPM. ALL NEEDS ATTENDED. SAFETY MEASURES MAINTAINED: CALL LIGHT AND TABLE WITHIN REACH, SIDE RAILS UP X2, BED IN LOWEST LOCKED POSITION. ENDORSED TO MORNING SHIFT FOR GABRIELA
[2021-12-21 06:56] LABS: CALCIUM, SERUM 8.5 mg/dL (8.5-10.1); CREATININE 0.9 mg/dL (0.6-1.3); MAGNESIUM 2.4 mg/dL (1.8-2.4); PHOSPHORUS 4.3 mg/dL (2.5-4.9); POTASSIUM 4.8 mmol/L (3.5-5.1)
--- NOTE | 2021-12-21 07:10 | NUR ---
ms rn received on bed, awake,alert,oriented x4,not in any form of distress, respirations even and unlabored,no sob noted, lungs are clear,abdomen soft,positive bowel sounds, denies pain at this time, for bone marrow biopsy this evening,will monitor patient.
[2021-12-21] MEDS: IPRATROPIUM NEB FS 0.5 MG/2.5 ML AMPUL.NEB NEB SCH ×3 (07:35→23:11)
[2021-12-21] MEDS: PANTOPRAZOLE 40 MG TABLET.DR PO SCH (07:46)
[2021-12-21 08:00] VITALS: BP 127/100
[2021-12-21] MEDS: APIXABAN 5 MG TABLET PO SCH ×2 (08:05→17:00)
[2021-12-21] MEDS: methylPREDNISolone SOD SUCC 40 MG/ML VIAL IV SCH (08:38)
[2021-12-21] MEDS: FERROUS SULFATE (325 MG) 325 MG/TAB TABLET PO SCH ×2 (08:38→17:10)
[2021-12-21] MEDS: AMLODIPINE BESYLATE 5 MG TABLET PO SCH (08:38)
[2021-12-21] MEDS: DILTIAZEM HCL CD 180 MG PO SCH (08:40)
[2021-12-21] MEDS: CARVEDILOL 6.25 MG TABLET PO SCH ×2 (08:41→17:11)
[2021-12-21] MEDS ORDERED: HYDROXYUREA 500 MG CAPSULE PO SCH ×2 (09:00→13:00)
--- NOTE | 2021-12-21 09:20 | NUR ---
ms espinoza breakfast served,due meds given,tolerated well.
[2021-12-21 09:50] LABS: LYMPHOCYTES % (MANUAL) 86 % (16-48); MONOCYTES % (MANUAL) 2 % (0-11.0); NEUTROPHILS % (MANUAL) 12 (42-76)
[2021-12-21 12:00] VITALS: BP 115/76
[2021-12-21] MEDS ORDERED: HYDROXYUREA 500 MG CAPSULE PO ONE (13:00)
[2021-12-21] MEDS: ALLOPURINOL 100 MG TABLET PO SCH (13:55)
[2021-12-21] MEDS: DIGOXIN 0.25 MG TABLET PO SCH (13:55)
[2021-12-21] MEDS ORDERED: LIDOCAINE 1% INJ 50 ML MDV IJ ONE (15:30)
[2021-12-21] MEDS ORDERED: LORAZEPAM 1 MG TABLET PO ONE (15:30)
[2021-12-21] MEDS ORDERED: MORPHINE SULFATE INJ 2 MG/ML DISP.SYRIN IM ONE (15:30)
[2021-12-21 16:00] VITALS: BP 131/92
--- NOTE | 2021-12-21 16:30 | NUR ---
ms rn on bed, waiting for dr. candelario to do procedure, all materials ready at bedside.
[2021-12-21] MEDS: HYDROXYUREA 500 MG CAPSULE PO SCH (17:10)
--- NOTE | 2021-12-21 19:00 | NUR ---
ms rn just finished bone marrow biopsy by dr. candelario,area w/ dressing, dry and intact, patient denies pain at this time, all needs attended.
[2021-12-21 20:00] VITALS: BP 132/90
[2021-12-21 20:18] LABS: BASOPHILS # (AUTO) 0.1 K/uL (0.0-0.2); HEMATOCRIT 43 % (39-51); HEMOGLOBIN 13.3 g/dL (13.5-17.5); LYMPHOCYTES # (AUTO) 96.2 K/uL (0.8-4.8); LYMPHOCYTES % (AUTO) 88.6 % (20.0-44.0); MEAN CORPUSCULAR HGB CONC 31 g/dl (31.0-36.0); MEAN CORPUSCULAR VOLUME 94 fL (80-96); MONOCYTES # (AUTO) 0.8 K/uL (0.1-1.30); MONOCYTES % (AUTO) 0.8 % (2.0-12.0); NEUTROPHILS # (AUTO) 11.5 K/uL (1.8-8.9); NEUTROPHILS % (AUTO) 10.6 % (43.0-81.0); PLATELET COUNT (AUTO) 296 K/uL (150-450); RED BLOOD CELL COUNT(AUTO) 4.58 MIL/uL (4.5-6.0)
[2021-12-21 20:23] LABS: WHITE BLOOD COUNT (AUTO) 108.6 K/uL (4.3-11.0)
--- NOTE | 2021-12-21 20:41 | NUR ---
MANAGER EPIC OPENING NOTES: RECEIVED PATIENT AWAKE IN BED, BED IN LOW POSITION CALL LIGHTS WITHIN REACH, NO COMPLAIN OF PAIN AND DISCOMFORT AT THIS TIME, ON ROOM AIR SATURATING WELL, PATIENT IS A/O X4 ABLE TO MAKE NEEDS KNOWN, ON TELE MONITOR- AFIB-89 NO SYMPTOMS WAS OBSERVED, PATIENT IS S/P BONE MARROW NEEDLE BIOPSY, NO BLEEDING WAS OBSERVED, PATIENT KEPT CLEAN AND DRY ALL NEEDS MET WILL CONTINUE TO MONITOR
[2021-12-21 20:52] LABS: NEUTROPHILS % (MANUAL) 6 (42-76)
[2021-12-21 20:53] LABS: LYMPHOCYTES % (MANUAL) 92 % (16-48); MONOCYTES % (MANUAL) 2 % (0-11.0)
--- NOTE | 2021-12-21 23:30 | NUR ---
Patient received on room air and tolerating well. Breathing treatment given and tolerated well without adverse effect. Patient resting comfortably, no respiratory distress noted.
[2021-12-22] VITALS (7 sets, daily range): BP systolic 106–150; BP diastolic 64–88
[2021-12-22 06:07] LABS: HEMATOCRIT 43 % (39-51); HEMOGLOBIN 13.3 g/dL (13.5-17.5); LYMPHOCYTES # (AUTO) 93.6 K/uL (0.8-4.8); LYMPHOCYTES % (AUTO) 89.1 % (20.0-44.0); MEAN CORPUSCULAR HGB CONC 31 g/dl (31.0-36.0); MEAN CORPUSCULAR VOLUME 92 fL (80-96); MONOCYTES # (AUTO) 0.9 K/uL (0.1-1.30); MONOCYTES % (AUTO) 0.8 % (2.0-12.0); NEUTROPHILS # (AUTO) 10.6 K/uL (1.8-8.9); NEUTROPHILS % (AUTO) 10.1 % (43.0-81.0); PLATELET COUNT (AUTO) 267 K/uL (150-450); RED BLOOD CELL COUNT(AUTO) 4.63 MIL/uL (4.5-6.0)
--- NOTE | 2021-12-22 06:29 | NUR ---
RN NOTES: RECEIVED A CRITICAL LAB OF [id number], RESULT IS TRENDING DOWN, WILL CONTINUE TO MONITOR.
--- NOTE | 2021-12-22 06:30 | NUR ---
TECHNICAL PLANNER CLOSING NOTES: PATIENT SLEEP IN BED COMFORTABLY, AROUSABLE TO VERBAL STIMULI, BED IN LOW POSITION CALL LIGHTS WITHIN REACH, NO COMPLAIN OF PAIN AND DISCOMFORT AT THIS TIME, ON ROOM AIR SATURATING WELL, PATIENT IS A/OX4 AMBULATORY, ABLE TO MAKE NEEDS KNOWN, PATIENT KEPT CLEAN AND DRY ALL NEEDS MET ENDORSE TO INCOMING SHIFT.
[2021-12-22 06:54] LABS: CALCIUM, SERUM 8.6 mg/dL (8.5-10.1); CREATININE 0.9 mg/dL (0.6-1.3); MAGNESIUM 2.4 mg/dL (1.8-2.4); PHOSPHORUS 4.2 mg/dL (2.5-4.9); POTASSIUM 4.5 mmol/L (3.5-5.1)
--- NOTE | 2021-12-22 07:12 | NUR ---
PROFILING MACHINE SETUP OPERATOR OPENING NOTES: RECEIVED PATIENT IN BED, AWAKE ALERT AND ORIENTED X 4 AND ABLE TO MAKE NEEDS KNOWN,.NO SOB OR CARDIAC DISTRESS NOTED, AFEBRILE. DENIES ANY PAIN AT THIS TIME. ON DIRECTOR OF FUNDRAISING: WITH CURRENT READING OF CONTROLLED AFIB 89BPM. . IV ACCESS ON LEFT AC G20 PATENT AND INTACT AND SALINE LOCKED. SAFETY PRECAUTIONS MAINTAINED:BED LOCKED AND IN LOWEST POSITION, SIDE RAILS X 2. CALL LIGHT IN EASY REACH. WILL MONITOR ACCORDINGLY.
[2021-12-22] MEDS: PANTOPRAZOLE 40 MG TABLET.DR PO SCH (07:26)
[2021-12-22] MEDS: IPRATROPIUM NEB FS 0.5 MG/2.5 ML AMPUL.NEB NEB SCH ×3 (07:35→23:30)
[2021-12-22] MEDS: DILTIAZEM HCL CD 180 MG PO SCH (08:36)
[2021-12-22] MEDS: ALLOPURINOL 100 MG TABLET PO SCH (08:37)
[2021-12-22] MEDS: HYDROXYUREA 500 MG CAPSULE PO SCH ×2 (08:37→17:17)
[2021-12-22] MEDS: methylPREDNISolone SOD SUCC 40 MG/ML VIAL IV SCH (08:37)
[2021-12-22] MEDS: AMLODIPINE BESYLATE 5 MG TABLET PO SCH (08:37)
[2021-12-22] MEDS: FERROUS SULFATE (325 MG) 325 MG/TAB TABLET PO SCH ×2 (08:37→17:17)
[2021-12-22] MEDS: APIXABAN 5 MG TABLET PO SCH ×2 (08:38→17:21)
[2021-12-22] MEDS: CARVEDILOL 6.25 MG TABLET PO SCH ×2 (08:38→17:18)
[2021-12-22 10:20] LABS: LYMPHOCYTES % (MANUAL) 87 % (16-48); MONOCYTES % (MANUAL) 1 % (0-11.0); NEUTROPHILS % (MANUAL) 12 (42-76)
[2021-12-22] MEDS: DIGOXIN 0.25 MG TABLET PO SCH (12:41)
--- NOTE | 2021-12-22 18:47 | NUR ---
EXPORT CLERK CLOSING NOTES: PATIENT IN BED, AWAKE ALERT AND ORIENTED X 4 AND ABLE TO MAKE NEEDS KNOWN,PT WATCHING TELEVISION. NO SOB OR CARDIAC DISTRESS NOTED, AFEBRILE. DENIES ANY PAIN AT THIS TIME. ON DIRECTOR OF SCIENTIFIC RESEARCH: WITH CURRENT READING OF CONTROLLED AFIB 89BPM.WITH DRY DRESSING ON HIS LOWER BACK,NO SIGNS OF BLEEDING NO UNUSUAL DISCHARGE NOTED.WILL MONITOR ACCORDINGLY. IV ACCESS ON LEFT AC G20 PATENT AND INTACT AND SALINE LOCKED. SAFETY PRECAUTIONS MAINTAINED:BED LOCKED AND IN LOWEST POSITION, SIDE RAILS X 2. CALL LIGHT IN EASY REACH. ENDORSED TO ROCKET ENGINE TESTER NURSE FOR CONTINUITY OF CARE.
--- NOTE | 2021-12-22 19:30 | NUR ---
GEOLOGICAL SPECIALIST OPENING NOTE RECEIVED PATIENT IN BED; AWAKE, ALERT AND ORIENTED X 4. BREATHING EVEN AND NONLABORED. ON ROOM AIR; TOLERATING WELL. NOT IN ANY FORM OF RESPIRATORY DISTRESS. DENIES ANY PAIN OR DISCOMFORT AT THIS TIME. WITH IV ACCESS ON LEFT ANTECUBITAL 20g: PATENT, INTACT AND SALINE LOCKED. ON TELEMETRY MONITORING WITH CURRENT READING OF CONTROLLED A FIB HR-84 BPM. ABLE TO MAKE NEEDS KNOWN. SAFETY MEASURES IMPLEMENTED: CALL LIGHT AND TABLE WITHIN REACH, SIDE RAILS UP X2, BED IN LOWEST LOCKED POSITION. WILL CONTINUE TO MONITOR.
--- NOTE | 2021-12-22 23:57 | NUR ---
RT NOTE PATIENT REFUSING BREATHING TX AT THIS TIME. SPO2 95-96% ON RA. NO RESPIRATORY DISTRESS NOTED. PRIMARY NURSE NOTIFIED AND AWARE. WILL CONTINUE TO MONITOR PATIENT.
[2021-12-23] VITALS: BP 135/86
[2021-12-23 04:00] VITALS: BP_SYST 128; BP_SYST 155; BP_DIAS 69; BP_DIAS 72
[2021-12-23 06:28] LABS: CALCIUM, SERUM 8.4 mg/dL (8.5-10.1); CREATININE 0.8 mg/dL (0.6-1.3); MAGNESIUM 2.4 mg/dL (1.8-2.4); POTASSIUM 4.4 mmol/L (3.5-5.1)
--- NOTE | 2021-12-23 06:50 | NUR ---
PROGRAMMABLE LOGIC CONTROLLER ASSEMBLER CLOSING NOTE PATIENT IN BED; AWAKE, A/O X 4. STABLE ON ROOM AIR. RESPIRATION EQUAL AND UNLABORED. IN NO APPARENT DISTRESS. NO C/O PAIN OR DISCOMFORT AT THIS TIME. WITH IV ACCESS ON LEFT AC 20g: PATENT, INTACT AND SALINE LOCKED. ON TELE MONITOR WITH CURRENT READING OF A FIB CONTROLLED HR- 85BPM. ALL NEEDS MET. SAFETY MEASURES MAINTAINED: CALL LIGHT AND TABLE WITHIN REACH, SIDE RAILS UP X2, BED IN LOWEST LOCKED POSITION. ENDORSED TO MAX MCCULLOUGH FOR GABRIELA.
[2021-12-23 07:10] LABS: BASOPHILS # (AUTO) 0.1 K/uL (0.0-0.2); BASOPHILS % (AUTO) 0.1 % (0.0-2.0); HEMATOCRIT 43 % (39-51); HEMOGLOBIN 13.3 g/dL (13.5-17.5); LYMPHOCYTES # (AUTO) 86.3 K/uL (0.8-4.8); LYMPHOCYTES % (AUTO) 87.9 % (20.0-44.0); MEAN CORPUSCULAR HGB CONC 31 g/dl (31.0-36.0); MEAN CORPUSCULAR VOLUME 92 fL (80-96); MONOCYTES # (AUTO) 1.1 K/uL (0.1-1.30); MONOCYTES % (AUTO) 1.1 % (2.0-12.0); NEUTROPHILS # (AUTO) 10.7 K/uL (1.8-8.9); NEUTROPHILS % (AUTO) 10.9 % (43.0-81.0); PLATELET COUNT (AUTO) 263 K/uL (150-450); RED BLOOD CELL COUNT(AUTO) 4.67 MIL/uL (4.5-6.0)
[2021-12-23] MEDS: PANTOPRAZOLE 40 MG TABLET.DR PO SCH (07:31)
[2021-12-23] MEDS: IPRATROPIUM NEB FS 0.5 MG/2.5 ML AMPUL.NEB NEB SCH ×2 (07:35→17:14)
--- NOTE | 2021-12-23 07:47 | NUR ---
FAMILY CONSUMER SCIENCE FCS TEACHER OPENING NOTES: RECEIVED PATIENT IN BED, ASLEEP AND EASILY AROUSED WITH VERBAL STIMULI ALERT AND ORIENTED X 4 AND ABLE TO MAKE NEEDS KNOWN,.NO SOB OR CARDIAC DISTRESS NOTED, AFEBRILE. DENIES ANY PAIN AT THIS TIME. ON SUPERVISOR TRAVEL INFORMATION CENTER: WITH CURRENT READING OF CONTROLLED AFIB 91 BPM. . IV ACCESS ON LEFT AC G20 PATENT AND INTACT AND SALINE LOCKED. SAFETY PRECAUTIONS MAINTAINED:BED LOCKED AND IN LOWEST POSITION, SIDE RAILS X 2. CALL LIGHT IN EASY REACH. WILL MONITOR ACCORDINGLY.
[2021-12-23 08:00] VITALS: BP 117/66
[2021-12-23 08:16] LABS: WHITE BLOOD COUNT (AUTO) 98.2 K/uL (4.3-11.0)
[2021-12-23] MEDS: methylPREDNISolone SOD SUCC 40 MG/ML VIAL IV SCH (08:51)
[2021-12-23] MEDS: ALLOPURINOL 100 MG TABLET PO SCH (08:51)
[2021-12-23] MEDS: HYDROXYUREA 500 MG CAPSULE PO SCH ×2 (08:51→16:56)
[2021-12-23] MEDS: CARVEDILOL 6.25 MG TABLET PO SCH ×2 (08:52→16:57)
[2021-12-23] MEDS: FERROUS SULFATE (325 MG) 325 MG/TAB TABLET PO SCH ×2 (08:52→16:56)
[2021-12-23] MEDS: DILTIAZEM HCL CD 180 MG PO SCH (08:52)
[2021-12-23] MEDS: AMLODIPINE BESYLATE 5 MG TABLET PO SCH (08:53)
[2021-12-23] MEDS: APIXABAN 5 MG TABLET PO SCH ×2 (08:58→16:58)
[2021-12-23 10:23] LABS: LYMPHOCYTES % (MANUAL) 87 % (16-48); MONOCYTES % (MANUAL) 3 % (0-11.0); NEUTROPHILS % (MANUAL) 10 (42-76)
[2021-12-23] MEDS: DIGOXIN 0.25 MG TABLET PO SCH (12:35)
[2021-12-23] MEDS ORDERED: DILT180C66 PO (14:05)
[2021-12-23] MEDS ORDERED: DIGO250T PO (14:05)
[2021-12-23] MEDS ORDERED: APIX5TAB PO (14:05)
[2021-12-23] MEDS ORDERED: PANT40TA49 PO (14:05)
[2021-12-23] MEDS ORDERED: HYDR500C PO (14:05)
[2021-12-23] MEDS ORDERED: ALLO100T25 PO (14:05)
[2021-12-23 16:57] VITALS: BP 155/72
== END 2021-12-23 19:00 | disposition home or self-care (01) | DRG 201 ==
LOC: ER 19:40 → TRANSITION 22:51 → TELE 12-14 00:26 → MED 12-23 13:15
PROVIDERS: ADMIT Nurse Practitioner Family; ATTEND Student in an Organized Health Care Education/Training Program
PROC: 079T3ZX Drainage of Bone Marrow, Percutaneous Approach, Diagnostic (ICD-10-PCS; principal; 2021-12-21)
DX: I48.91 Unspecified atrial fibrillation (principal); J96.01 Acute respiratory failure with hypoxia; E46 Unspecified protein-calorie malnutrition; E87.1 Hypo-osmolality and hyponatremia; K57.30 Diverticulosis of large intestine without perforation or abscess without bleeding; D50.9 Iron deficiency anemia, unspecified; C91.10 Chronic lymphocytic leukemia of B-cell type not having achieved remission; I25.10 Atherosclerotic heart disease of native coronary artery without angina pectoris; E66.9 Obesity, unspecified; G89.29 Other chronic pain; J06.9 Acute upper respiratory infection, unspecified; Z20.822 Contact with and (suspected) exposure to COVID-19; Z68.31 Body mass index [BMI] 31.0-31.9, adult; I10 Essential (primary) hypertension; Z98.1 Arthrodesis status; Z79.899 Other long term (current) drug therapy; Z82.49 Family history of ischemic heart disease and other diseases of the circulatory system; Z87.891 Personal history of nicotine dependence; I77.810 Thoracic aortic ectasia; G47.33 Obstructive sleep apnea (adult) (pediatric); J98.11 Atelectasis
CPT/HCPCS: 36415; 71045-TC; 71250-TC; 71260-TC; 76700-TC; 80048-TC; 80061-TC; 80076-TC; 81001; 82105; 82607-TC; 82728-TC; 82784; 83540-TC; 83615-TC; 83735-TC; 84100-TC; 84155; 84165; 84443-TC; 84484-TC; 84550-TC; 85025-TC; 85610-TC; 85730-TC; 86334; 87040-TC; 87081-TC; 87086-TC; 93307-TC; 94799-TC; C9803; G0378; J0456; J0696; J1160; J2270; J2405; J2543; J2920; J2930; J3370; J3490; J7040; J7050; J7060; Q9967

== ENCOUNTER 2023-03-03 12:33 | Inpatient (IN) | payer MEDICAID ==
[2023-03-03] VITALS (7 sets, daily range): BP systolic 119–136; BP diastolic 71–81; TEMP 98.4–99.3; O2SAT 100
[~2023-03-03] VITALS: Ht 182.9 cm; Wt 93.4 kg
[~2023-03-03 12:33] MED LIST changes: +ALLO100T25 PO; +APIX5TAB PO; +DIGO250T PO; +DILT180C66 PO; +HYDR500C PO; +PANT40TA49 PO
[2023-03-03] MEDS ORDERED: IV NS 0.9% 1,000 ML BAG IV ONE (14:30)
[2023-03-03] MEDS ORDERED: HYDR500C2 PO (14:41)
[2023-03-03] MEDS ORDERED: PANT40TA2 PO (14:41)
[2023-03-03] MEDS ORDERED: ALLO300T2 PO (14:41)
[2023-03-03] MEDS ORDERED: ASPI-1420 PO (14:41)
[2023-03-03] MEDS ORDERED: MULT-1196 PO (14:41)
[2023-03-03] MEDS ORDERED: METO-357 PO (14:41)
[2023-03-03] MEDS ORDERED: ATOR80TA PO (14:41)
[2023-03-03] MEDS ORDERED: DIGO250T PO (14:41)
[2023-03-03 16:23] LABS: EOSINOPHILS % (AUTO) 0.1 % (0.0-6.0); LYMPHOCYTES # (AUTO) 11.7 K/uL (0.8-4.8); LYMPHOCYTES % (AUTO) 91.3 % (20.0-44.0); MEAN CORPUSCULAR HEMOGLOBIN 41 PG (26.0-33.0); MEAN CORPUSCULAR HGB CONC 34 g/dl (31.0-36.0); MEAN CORPUSCULAR VOLUME 123 fL (80-96); MONOCYTES % (AUTO) 0.4 % (2.0-12.0); NEUTROPHILS # (AUTO) 1.1 K/uL (1.8-8.9); NEUTROPHILS % (AUTO) 8.2 % (43.0-81.0); RED CELL DISTRIBUTION WIDTH 44.8 % (11.5-15.0); WHITE BLOOD COUNT (AUTO) 12.8 K/uL (4.3-11.0)
[2023-03-03 16:25] LABS: RED BLOOD CELL COUNT(AUTO) 0.73 MIL/uL (4.5-6.0)
[2023-03-03 16:27] LABS: HEMATOCRIT 9 % (39-51); PLATELET COUNT (AUTO) 35 K/uL (150-450)
[2023-03-03 16:39] LABS: INR 1.14 (0.91-1.10); PARTIAL THROMBOPLASTIN TIME 24.2 SEC (24.3-34.3)
[2023-03-03 16:46] LABS: ALANINE AMINOTRANSFERASE 30 U/L (12-78); ALBUMIN 3.6 g/dL (3.4-5.0); ALKALINE PHOSPHATASE 110 U/L (46-116); ASPARTATE AMINOTRANSFERASE 15 U/L (15-37); BILIRUBIN,DIRECT 0.3 mg/dL (0.0-0.2); BILIRUBIN,TOTAL 1.3 mg/dL (0.2-1.0); TOTAL PROTEIN, SERUM 5.9 g/dL (6.4-8.2)
[2023-03-03 17:01] LABS: POTASSIUM 3.7 mmol/L (3.5-5.1)
[2023-03-03 17:02] LABS: CALCIUM, SERUM 8.2 mg/dL (8.5-10.1)
[2023-03-03 17:03] LABS: CREATININE 0.8 mg/dL (0.6-1.3)
[2023-03-03 17:12] LABS: LACTIC ACID 1.3 mmol/L (0.4-2.0)
[2023-03-03 20:09] LABS: LYMPHOCYTES % (MANUAL) 96 % (16-48); NEUTROPHILS % (MANUAL) 4 (42-76)
[2023-03-03 20:10] LABS: ANISOCYTOSIS 1+; PLATELET ESTIMATE DECREASED
[2023-03-03 20:11] LABS: OVALOCYTES 1+
[2023-03-03] MEDS ORDERED: METOPROLOL SUCCINATE 50 MG TAB.SR.24H PO PRN (23:00)
[2023-03-03] MEDS ORDERED: ACETAMINOPHEN 325 MG TABLET PO PRN (23:00)
[2023-03-03] MEDS ORDERED: Z GUARD REMEDY 4 OZ OINT TP PRN (23:00)
[2023-03-03] MEDS ORDERED: ONDANSETRON HCL/PF 4 MG/2 ML VIAL IVP PRN (23:00)
[2023-03-04] VITALS (24 sets, daily range): BP systolic 111–144; BP diastolic 64–82; TEMP 97.5–99.2; O2SAT 96–100
[2023-03-04 07:32] LABS: CREATININE 0.6 mg/dL (0.6-1.3); MAGNESIUM 1.9 mg/dL (1.8-2.4); PHOSPHORUS 3.5 mg/dL (2.5-4.9); POTASSIUM 3.9 mmol/L (3.5-5.1)
[2023-03-04 07:55] LABS: EOSINOPHILS % (AUTO) 0.1 % (0.0-6.0); LYMPHOCYTES # (AUTO) 17.7 K/uL (0.8-4.8); LYMPHOCYTES % (AUTO) 93.7 % (20.0-44.0); MEAN CORPUSCULAR HEMOGLOBIN 35 PG (26.0-33.0); MEAN CORPUSCULAR HGB CONC 34 g/dl (31.0-36.0); MEAN CORPUSCULAR VOLUME 103 fL (80-96); MONOCYTES # (AUTO) 0.1 K/uL (0.1-1.30); MONOCYTES % (AUTO) 0.3 % (2.0-12.0); NEUTROPHILS # (AUTO) 1.1 K/uL (1.8-8.9); NEUTROPHILS % (AUTO) 5.9 % (43.0-81.0); RED CELL DISTRIBUTION WIDTH 14.8 % (11.5-15.0); RETICULOCYTE COUNT 1.6 % (0.6-2.5); WHITE BLOOD COUNT (AUTO) 18.9 K/uL (4.3-11.0)
[2023-03-04 08:10] LABS: RED BLOOD CELL COUNT(AUTO) 1.54 MIL/uL (4.5-6.0)
[2023-03-04 08:13] LABS: HEMATOCRIT 16 % (39-51); HEMOGLOBIN 5.4 g/dL (13.5-17.5); PLATELET COUNT (AUTO) 44 K/uL (150-450)
[2023-03-04] MEDS: PANTOPRAZOLE 40 MG TABLET.DR PO SCH (08:36)
[2023-03-04] MEDS: DIGOXIN 0.25 MG TABLET PO SCH (08:36)
[2023-03-04] MEDS: ASPIRIN EC 81 MG TABLET.DR PO SCH (08:36)
[2023-03-04 14:57] LABS: ANISOCYTOSIS 1+; LYMPHOCYTES % (MANUAL) 88 % (16-48); NEUTROPHILS % (MANUAL) 12 (42-76); PLATELET ESTIMATE DECREASED
[2023-03-04 14:58] LABS: OVALOCYTES 1+; SMUDGE CELLS 2+
[2023-03-04] MEDS: ATORVASTATIN 40 MG TABLET PO SCH (22:48)
[2023-03-05] VITALS (7 sets, daily range): BP systolic 128–140; BP diastolic 65–79; TEMP 97.9–99.2; O2SAT 97–99
[2023-03-05 02:56] LABS: APPEARANCE,URINE CLEAR (CLEAR); BILIRUBIN,URINE NEGATIVE (NEGATIVE); BLOOD, URINE NEGATIVE Ery/uL (NEGATIVE); COLOR,URINE YELLOW (YELLOW); KETONES,URINE NEGATIVE (NEGATIVE); LEUKOCYTE ESTERASE ,URINE NEGATIVE (NEGATIVE); NITRITE, URINE NEGATIVE (NEGATIVE); PH,URINE 6.5 (5.0-8.0); PROTEIN,URINE NEGATIVE (NEGATIVE); UGLUCOSE NEGATIVE (NEGATIVE)
[2023-03-05 03:03] LABS: ADD URINE CULTURE NO; BACTERIA,URINE Rare /HPF (None Seen); RBC,URINE 0-2 /HPF (0-2); SQUAMOUS EPITHELIAL CELL,UR Rare /HPF (None Seen); WBC,URINE 0-2 /HPF (0-3)
[2023-03-05 07:28] LABS: EOSINOPHILS % (AUTO) 0.1 % (0.0-6.0); LYMPHOCYTES # (AUTO) 13.7 K/uL (0.8-4.8); LYMPHOCYTES % (AUTO) 94.9 % (20.0-44.0); MEAN CORPUSCULAR HEMOGLOBIN 34 PG (26.0-33.0); MEAN CORPUSCULAR HGB CONC 34 g/dl (31.0-36.0); MEAN CORPUSCULAR VOLUME 101 fL (80-96); MONOCYTES % (AUTO) 0.3 % (2.0-12.0); NEUTROPHILS # (AUTO) 0.7 K/uL (1.8-8.9); NEUTROPHILS % (AUTO) 4.7 % (43.0-81.0); WHITE BLOOD COUNT (AUTO) 14.5 K/uL (4.3-11.0)
[2023-03-05 07:30] LABS: HEMATOCRIT 20 % (39-51); RED BLOOD CELL COUNT(AUTO) 1.99 MIL/uL (4.5-6.0)
[2023-03-05 07:31] LABS: HEMOGLOBIN 6.8 g/dL (13.5-17.5); PLATELET COUNT (AUTO) 41 K/uL (150-450)
[2023-03-05 07:45] LABS: CALCIUM, SERUM 7.9 mg/dL (8.5-10.1); CREATININE 0.6 mg/dL (0.6-1.3); PHOSPHORUS 3.8 mg/dL (2.5-4.9); POTASSIUM 3.7 mmol/L (3.5-5.1)
[2023-03-05] MEDS: PANTOPRAZOLE 40 MG TABLET.DR PO SCH (08:09)
[2023-03-05] MEDS: DIGOXIN 0.25 MG TABLET PO SCH (08:53)
[2023-03-05] MEDS: ASPIRIN EC 81 MG TABLET.DR PO SCH (08:57)
[2023-03-05 09:42] LABS: ANISOCYTOSIS 1+; BASOPHILS % (MANUAL) 0 % (0.0-2.0); EOSINOPHILS % (MANUAL) 0 % (0-4); LYMPHOCYTES % (MANUAL) 91 % (16-48); MONOCYTES % (MANUAL) 1 % (0-11.0); NEUTROPHILS % (MANUAL) 8 (42-76); OVALOCYTES 1+; PLATELET ESTIMATE DECREASED
[2023-03-05 16:36] LABS: HEMOGLOBIN 7.1 g/dL (13.5-17.5)
[2023-03-05] MEDS: ATORVASTATIN 40 MG TABLET PO SCH (21:09)
[2023-03-06] VITALS (11 sets, daily range): BP systolic 120–149; BP diastolic 60–87; TEMP 97.6–98.8; O2SAT 98–99
[2023-03-06 06:19] LABS: EOSINOPHILS % (AUTO) 0.2 % (0.0-6.0); HEMATOCRIT 21 % (39-51); LYMPHOCYTES # (AUTO) 15.3 K/uL (0.8-4.8); LYMPHOCYTES % (AUTO) 93.3 % (20.0-44.0); MEAN CORPUSCULAR HEMOGLOBIN 34 PG (26.0-33.0); MEAN CORPUSCULAR HGB CONC 34 g/dl (31.0-36.0); MEAN CORPUSCULAR VOLUME 101 fL (80-96); MONOCYTES # (AUTO) 0.1 K/uL (0.1-1.30); MONOCYTES % (AUTO) 0.4 % (2.0-12.0); NEUTROPHILS % (AUTO) 6.1 % (43.0-81.0); RED BLOOD CELL COUNT(AUTO) 2.05 MIL/uL (4.5-6.0); RED CELL DISTRIBUTION WIDTH 15.6 % (11.5-15.0); WHITE BLOOD COUNT (AUTO) 16.4 K/uL (4.3-11.0)
[2023-03-06 06:35] LABS: HEMOGLOBIN 6.9 g/dL (13.5-17.5); PLATELET COUNT (AUTO) 42 K/uL (150-450)
[2023-03-06 06:45] LABS: CALCIUM, SERUM 8.1 mg/dL (8.5-10.1); CREATININE 0.5 mg/dL (0.6-1.3); PHOSPHORUS 4.4 mg/dL (2.5-4.9); POTASSIUM 3.9 mmol/L (3.5-5.1)
[2023-03-06] MEDS: ASPIRIN EC 81 MG TABLET.DR PO SCH (08:24)
[2023-03-06] MEDS: PANTOPRAZOLE 40 MG TABLET.DR PO SCH (08:25)
[2023-03-06] MEDS: DIGOXIN 0.25 MG TABLET PO SCH (08:25)
[2023-03-06 10:13] LABS: IRON, SERUM 106 ug/dl (50-175); TOTAL IRON BINDING CAPACITY 247 ug/dl (250-450)
[2023-03-06 10:22] LABS: FERRITIN 445 ng/mL (8-388)
[2023-03-06 17:51] LABS: HEMOGLOBIN 6.8 g/dL (13.5-17.5)
[2023-03-06 20:32] LABS: ANISOCYTOSIS 1+; LYMPHOCYTES % (MANUAL) 94 % (16-48); NEUTROPHILS % (MANUAL) 6 (42-76); PLATELET ESTIMATE DECREASED
[2023-03-06 20:33] LABS: OVALOCYTES 1+
[2023-03-06] MEDS: ATORVASTATIN 40 MG TABLET PO SCH (22:21)
[2023-03-07] VITALS: BP 134/70; TEMP 98.8; O2SAT 98
[2023-03-07 00:20] VITALS: BP 154/85; TEMP 98.2
[2023-03-07 01:00] VITALS: BP 137/72; TEMP 98.3
[2023-03-07 05:33] VITALS: BP 135/84; TEMP 98.5; O2SAT 97
[2023-03-07 07:05] LABS: EOSINOPHILS # (AUTO) 0.1 K/uL (0.0-0.7); EOSINOPHILS % (AUTO) 0.4 % (0.0-6.0); HEMATOCRIT 22 % (39-51); HEMOGLOBIN 7.5 g/dL (13.5-17.5); LYMPHOCYTES # (AUTO) 14.1 K/uL (0.8-4.8); LYMPHOCYTES % (AUTO) 86.1 % (20.0-44.0); MEAN CORPUSCULAR HEMOGLOBIN 33 PG (26.0-33.0); MEAN CORPUSCULAR HGB CONC 34 g/dl (31.0-36.0); MEAN CORPUSCULAR VOLUME 98 fL (80-96); MONOCYTES # (AUTO) 0.1 K/uL (0.1-1.30); MONOCYTES % (AUTO) 0.4 % (2.0-12.0); NEUTROPHILS # (AUTO) 2.1 K/uL (1.8-8.9); NEUTROPHILS % (AUTO) 13.1 % (43.0-81.0); RED BLOOD CELL COUNT(AUTO) 2.28 MIL/uL (4.5-6.0); RED CELL DISTRIBUTION WIDTH 15.8 % (11.5-15.0); WHITE BLOOD COUNT (AUTO) 16.3 K/uL (4.3-11.0)
[2023-03-07 07:16] LABS: CALCIUM, SERUM 8.2 mg/dL (8.5-10.1); CREATININE 0.6 mg/dL (0.6-1.3); MAGNESIUM 1.9 mg/dL (1.8-2.4); PHOSPHORUS 3.6 mg/dL (2.5-4.9); PLATELET COUNT (AUTO) 37 K/uL (150-450); POTASSIUM 3.9 mmol/L (3.5-5.1)
[2023-03-07 07:21] LABS: D-DIMER 1.59 mg/L(FEU (0.17-0.50); INR 1.08 (0.91-1.10); PARTIAL THROMBOPLASTIN TIME 27.6 SEC (24.3-34.3); PROTHROMBIN TIME 11.4 SECS (9.2-11.1)
[2023-03-07 07:31] LABS: THYROID STIMULATING HORMONE 1.76 uIU/mL (0.358-3.74)
[2023-03-07 08:00] VITALS: BP 148/73; TEMP 97.7; O2SAT 98
[2023-03-07] MEDS: PANTOPRAZOLE 40 MG TABLET.DR PO SCH (08:14)
[2023-03-07] MEDS: ASPIRIN EC 81 MG TABLET.DR PO SCH (09:10)
[2023-03-07] MEDS: DIGOXIN 0.25 MG TABLET PO SCH (09:10)
[2023-03-07 12:00] VITALS: BP 141/70; TEMP 97.7; O2SAT 98
[2023-03-07 19:28] LABS: LYMPHOCYTES % (MANUAL) 81 % (16-48); NEUTROPHILS % (MANUAL) 19 (42-76); SMUDGE CELLS 2
[2023-03-07 19:29] LABS: PLATELET ESTIMATE DECREASED
[2023-03-08 09:06] LABS: IMMUNOGLOBULIN A, SERUM 148 mg/dL (61-437); IMMUNOGLOBULIN G, SERUM 532 mg/dL (603-1613); IMMUNOGLOBULIN M, SERUM 19 mg/dL (20-172)
[2023-03-09 07:06] LABS: FOLIC ACID 16.5 ng/mL (>3.0)
[2023-03-09 10:07] LABS: FREE KAPPA LT CHAINS SERUM 40.2 mg/L (3.3-19.4); FREE LAMBDA LT CHAIN SERUM 9.1 mg/L (5.7-26.3); KAPPA/LAMBDA RATIO SERUM 4.42 (0.26-1.65)
[2023-03-09 15:09] LABS: *SPE A/G RATIO 1.3 (0.7-1.7); *SPE ALBUMIN 3.1 g/dL (2.9-4.4); *SPE ALPHA-1-GLOBULIN 0.2 g/dL (0.0-0.4); *SPE ALPHA-2-GLOBULIN 0.6 g/dL (0.4-1.0); *SPE BETA GLOBULIN 0.9 g/dL (0.7-1.3); *SPE GLOBULIN, TOTAL 2.3 g/dL (2.2-3.9); *SPE M-SPIKE Not Observed g/dL (Not Observed); *SPE PROTEIN TOTAL 5.4 g/dL (6.0-8.5); *SPEGAMMA GLOBULIN 0.5 g/dL (0.4-1.8)
== END 2023-03-07 13:54 | disposition home or self-care (01) | DRG 691 ==
LOC: ER 12:33 → TELE1 18:28
PROVIDERS: ADMIT Nurse Practitioner Acute Care; ATTEND Nurse Practitioner Acute Care
PROC: 30233R1 Transfusion of Nonautologous Platelets into Peripheral Vein, Percutaneous Approach (ICD-10-PCS; principal; 2023-03-03)
PROC: 30233N1 Transfusion of Nonautologous Red Blood Cells into Peripheral Vein, Percutaneous Approach (ICD-10-PCS; 2023-03-03)
PROC: 30233K1 Transfusion of Nonautologous Frozen Plasma into Peripheral Vein, Percutaneous Approach (ICD-10-PCS; 2023-03-03)
DX: C91.10 Chronic lymphocytic leukemia of B-cell type not having achieved remission (principal); D61.01 Constitutional (pure) red blood cell aplasia; D68.59 Other primary thrombophilia; D59.0 Drug-induced autoimmune hemolytic anemia; D46.9 Myelodysplastic syndrome, unspecified; D69.6 Thrombocytopenia, unspecified; K21.9 Gastro-esophageal reflux disease without esophagitis; D53.9 Nutritional anemia, unspecified; D75.89 Other specified diseases of blood and blood-forming organs; T45.1X5A Adverse effect of antineoplastic and immunosuppressive drugs, initial encounter; Y92.9 Unspecified place or not applicable; I10 Essential (primary) hypertension; Z98.890 Other specified postprocedural states; E78.5 Hyperlipidemia, unspecified; G89.29 Other chronic pain; Z90.49 Acquired absence of other specified parts of digestive tract; Z79.82 Long term (current) use of aspirin; Z79.899 Other long term (current) drug therapy; I25.10 Atherosclerotic heart disease of native coronary artery without angina pectoris; Z95.1 Presence of aortocoronary bypass graft; Z82.49 Family history of ischemic heart disease and other diseases of the circulatory system; E80.6 Other disorders of bilirubin metabolism; F10.11 Alcohol abuse, in remission; I48.91 Unspecified atrial fibrillation; K57.90 Diverticulosis of intestine, part unspecified, without perforation or abscess without bleeding; K64.8 Other hemorrhoids; D61.1 Drug-induced aplastic anemia; Y92.89 Other specified places as the place of occurrence of the external cause; K44.9 Diaphragmatic hernia without obstruction or gangrene; D68.9 Coagulation defect, unspecified
CPT/HCPCS: 36415; 76700-TC; 80048-TC; 80076-TC; 81001; 82607-TC; 82728-TC; 82784; 83010; 83540-TC; 83605-TC; 83615-TC; 83735-TC; 84100-TC; 84155; 84165; 84443-TC; 84484-TC; 84550-TC; 85025-TC; 85027-TC; 85045-TC; 85385-TC; 85396; 85730-TC; 86334; 86850-TC; 86880-TC; 87040-TC; 87086-TC; 93307-TC; G0378; J7030; J7040; J7050; P9016; P9017; P9034